=== PATIENT | female | born 2000 | race Caucasian/White ===

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

== ENCOUNTER 2023-08-02 00:13 | Observation (INO) | payer OTHER ==
[2023-08-02] MEDS ORDERED: Sodium Chloride 0.9% 1000 ML 1,000 ML IV STA (00:17)
[2023-08-02] MEDS ORDERED: Sodium Chloride 0.9% 1000 ML 1,000 ML ONE (00:33)
[2023-08-02] MEDS ORDERED: Zofran 4 MG/2 ML VIAL ONE ×2 (00:33→04:23)
[2023-08-02] MEDS ORDERED: TYLENOL 325 MG PO ONE (00:37)
[2023-08-02] MEDS ORDERED: Pepcid 20 MG VIAL IV ONE ×2 (00:37→00:54)
[2023-08-02] MEDS ORDERED: Zofran 4 MG/2 ML VIAL IV ONE (00:37)
[2023-08-02 00:44] LABS: Absolute Neutrophil Ct (ANC) 8.04 x10^3/uL (1.4-6.9); BASOPHIL % 0.3 % (0.0-0.4); Basophil (Absolute #) 0.03 x10^3/uL (0-0.4); Eosinophil % 1.2 % (0.00-5.0); Eosinophil (Absolute #) 0.12 x10^3/uL (0-0.5); Hematocrit 34.1 % (35-47); Hemoglobin 10.8 g/dL (12.0-16.0); IMMATURE GRAN # 0.04 x10^3u/L (0.00-0.03); IMMATURE GRAN % 0.4 % (0.00-0.4); Lymphocyte (Absolute #) 1.28 x10^3/uL (1.0-4.6); Lymphocytes % 12.6 % (24.0-44.0); Mean Cell Volume 95.5 fL (78-100); Mean Corpuscular Hemoglobin 30.3 pg (26-32); Mean Corpuscular Hgb Concent. 31.7 g/dL (32-36); Mean Platelet Volume 9.9 fL (7.5-11.0); Monocyte (Absolute #) 0.64 x10^3/uL (0.0-1.3); Monocytes % 6.3 % (0.0-12.0); Neutrophil % 79.2 % (36.0-66.0); Platelet Count 247 x10^3/uL (150-450); Red Blood Count 3.57 x10^6/uL (4.1-5.4); Red Cell Distribution Width 12.7 % (11.5-14.0); White Blood Count 10.2 x10^3/uL (4.0-10.5)
[2023-08-02] MEDS ORDERED: TYLENOL 325 MG ONE (00:54)
[2023-08-02 00:55] LABS: ALBUMIN 3.7 g/dL (3.5-5.0); ANION GAP 14.9 MEQ/L (5-15); BILIRUBIN,TOTAL 0.2 mg/dL (0.2-1.3); Calcium 8.3 mg/dL (8.4-10.2); Creatinine 1 0.48 mg/dL (0.52-1.04); EST GLOMERULAR FILTRATION RATE 136.4 ML/MIN; Potassium 3.4 mmol/L (3.5-5.1); Total Protein 6.5 g/dL (6.3-8.2)
--- NOTE | 2023-08-02 01:03 | ERPHSYRPT ---
- History of Present Illness Time Seen by Provider: 08/02/23 01:01 Source: patient Exam Limitations: no limitations Patient Subjective Stated Complaint: pt states she was approx 9 weeks and was told on that there was no heart beat. started having small amt of bleeding on thursday and tonight at approx 2200 began bleeding heavily and passing large clots. Triage Nursing Assessment: pt alert and oriented, answers questions approp. pt arrive per ambulance, transfers to stretcher with assist of 3. skin warm and dry. respirations nonlabored. pt ambulates into bathroom with standby assist, steady gait noted. pt passed 500 cc of dark red blood and clots and cont to have active vaginal bleeding. Physician History: pt states she was approx 9 weeks and was told on that there was no heart beat. started having small amt of bleeding on thursday and tonight at approximately 2200 began bleeding heavily and passing large clots. pt passed 500 cc of dark red blood and clots and cont to have active vaginal bleeding. Timing/Duration: today Activites at Onset: none Onset Location: vaginal Associated Symptoms: vaginal discharge Allergies/Adverse Reactions: poison tressa extract Allergy (Verified 08/02/23 00:15) Hives propranolol Allergy (Verified 08/02/23 00:15) Hives Home Medications: No Reportable Medications [No Reported Medications] 08/02/23 [History] Hx Tetanus, Diphtheria Vaccination/Date Given: Yes Hx Influenza Vaccination/Date Given: No Hx Pneumococcal Vaccination/Date Given: No Travel Risk - International Travel Have you traveled outside of the country in past 3 weeks: No - Coronavirus Screening Are you exhibiting any of the following symptoms?: No Close contact with a COVID-19 positive Pt in past 14-21 Days: No - Vaccine Status Have you recieved a Covid-19 vaccination: Yes 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 - Vaccination Dates Dates if Unknown: 2020 - Review of Systems Constitutional: No Symptoms Eyes: No Symptoms Ears, Nose, & Throat: No Symptoms Respiratory: No Symptoms Cardiac: No Symptoms Abdominal/Gastrointestinal: No Symptoms Genitourinary Symptoms: Vaginal Bleeding Musculoskeletal: No Symptoms Skin: No Symptoms Neurological: No Symptoms - Past Medical History Pertinent Past Medical History: Yes Neurological History: Migraines Other Medical History: irreg heart beat, tachycardia - Past Surgical History Past Surgical History: Yes - Social History Smoking Status: Current every day smoker How long have you smoked: 2 Exposure to second hand smoke: Yes Drug Use: none Patient Lives Alone: No - Female History Hx Last Menstrual Period: 05/02/23 Hx Now: Yes (no heart beat ) Gestational Age: 9 weeks - Nursing Vital Signs Nursing Vital Signs: Initial Vital Signs Pulse Rate 106 H 08/02/23 00:25 Respiratory Rate 16 08/02/23 00:25 Blood Pressure 85/56 08/02/23 00:25 O2 Sat by Pulse Oximetry 99 08/02/23 00:25 Pain Scale Pain Intensity 2 - Physical Exam General Appearance: no apparent distress Eye Exam: PERRL/EOMI Ears, Nose, Throat Exam: normal ENT inspection Neck Exam: normal inspection Respiratory Exam: normal breath sounds Cardiovascular Exam: regular rate/rhythm Gastrointestinal/Abdomen Exam: soft Pelvic Exam: not done Rectal Exam: deferred Back Exam: normal inspection Extremity Exam: normal inspection Neurologic Exam: alert, oriented x 3, cooperative Skin Exam: normal color SpO2 Interpretation: normal SpO2: 99 O2 Delivery: Room Air - Course Nursing assessment & vital signs reviewed: Yes Ordered Tests: Active Orders 24 hr Category Date Time Status IV Insertion STAT Care 08/02/23 00:17 Active CBC W DIFF Stat Lab 08/02/23 00:42 Completed CMP Stat Lab 08/02/23 00:42 Completed Medication Summary Generic Name Dose Route Start Last Admin Trade Name Freq PRN Reason Stop Dose Admin Sodium Chloride 1,000 mls @ 999 mls/hr 08/02/23 00:17 08/02/23 00:58 Sodium Chloride 0.9% 1000 Ml IV 08/02/23 01:17 999 mls/hr .Q1H1M STA Administration Discontinued Medications Generic Name Dose Route Start Last Admin Trade Name Freq PRN Reason Stop Dose Admin Acetaminophen 975 mg 08/02/23 00:37 08/02/23 00:56 Acetaminophen 325 Mg Tablet PO 08/02/23 00:38 975 mg STAT ONE Administration Acetaminophen Confirm 08/02/23 00:54 Acetaminophen 325 Mg Tablet Administered 08/02/23 00:55 Dose 975 mg .ROUTE .STK-MED ONE Famotidine 20 mg 08/02/23 00:37 08/02/23 00:57 Famotidine 20 Mg/1 Vial IV 08/02/23 00:38 20 mg STAT ONE Administration Famotidine Confirm 08/02/23 00:54 Famotidine 20 Mg/1 Vial Administered 08/02/23 00:55 Dose 20 mg IV .STK-MED ONE Sodium Chloride Confirm 08/02/23 00:33 Sodium Chloride 0.9% 1000 Ml Administered 08/02/23 00:34 Dose 1,000 mls @ ud .ROUTE .STK-MED ONE Ondansetron HCl Confirm 08/02/23 00:33 Ondansetron Hcl 4 Mg/2 Ml Vial Administered 08/02/23 00:34 Dose 4 mg .ROUTE .STK-MED ONE Ondansetron HCl 4 mg 08/02/23 00:37 08/02/23 00:53 Ondansetron Hcl 4 Mg/2 Ml Vial IV 08/02/23 00:38 4 mg STAT ONE Administration Lab/Rad Data: Laboratory Result Diagrams 08/02/23 00:42 08/02/23 00:42 Laboratory Results 08/02/23 08/02/23 Range/Units 00:42 00:42 WBC 10.2 (4.0-10.5) x10^3/uL RBC 3.57 L (4.1-5.4) x10^6/uL Hgb 10.8 L (12.0-16.0) g/dL Hct 34.1 L (35-47) % MCV 95.5 (78-100) fL MCH 30.3 (26-32) pg MCHC 31.7 L (32-36) g/dL RDW 12.7 (11.5-14.0) % Plt Count 247 (150-450) x10^3/uL MPV 9.9 (7.5-11.0) fL Gran % 79.2 H (36.0-66.0) % Immature Gran % (Auto) 0.4 (0.00-0.4) % Nucleat RBC Rel Count 0.0 (0.00-0.1) % Eos # (Auto) 0.12 (0-0.5) x10^3/uL Immature Gran # (Auto) 0.04 H (0.00-0.03) x10^3u/L Absolute Lymphs (auto) 1.28 (1.0-4.6) x10^3/uL Absolute Monos (auto) 0.64 (0.0-1.3) x10^3/uL Absolute Nucleated RBC 0.00 (0.00-0.01) x10^3u/L Lymphocytes % 12.6 L (24.0-44.0) % Monocytes % 6.3 (0.0-12.0) % Eosinophils % 1.2 (0.00-5.0) % Basophils % 0.3 (0.0-0.4) % Absolute Granulocytes 8.04 H (1.4-6.9) x10^3/uL Basophils # 0.03 (0-0.4) x10^3/uL Sodium 137 (137-145) mmol/L Potassium 3.4 L (3.5-5.1) mmol/L Chloride 105 (98-107) mmol/L Carbon Dioxide 20 L (22-30) mmol/L Anion Gap 14.9 (5-15) MEQ/L BUN 11 (7-17) mg/dL Creatinine 0.48 L (0.52-1.04) mg/dL Estimated GFR 136.4 ML/MIN Glucose 116 H (74-106) mg/dL Calcium 8.3 L (8.4-10.2) mg/dL Total Bilirubin 0.20 (0.2-1.3) mg/dL AST 21 (14-36) U/L ALT 21 (0-35) U/L Alkaline Phosphatase 64 (38-126) U/L Serum Total Protein 6.5 (6.3-8.2) g/dL Albumin 3.7 (3.5-5.0) g/dL - Progress Progress: unchanged Air Movement: good Blood Culture(s) Obtained: No Antibiotics given: No Discussed with : Jose Angel Will see patient in: hospital (observation) Counseled pt/family regarding: lab results, diagnosis, need for follow-up Medical Desision Making - Discussion of managment Care discussed with:: on-call "doc" Reviewed:: Test results, Need for additional workup Agreed on:: Treatment plan, decision to admit, place in obs Will see patient: in hospital - Diagnostic Testing Diagnostic test were ordered, analyzed, and reviewed by me: Yes Radiological Interpretation: Reviewed by me - Risk of complications The pt has a mod risk of morbidity or mortality based on: Need for minor s urgical intervention in patient with know risk factors - Departure Departure Disposition: Observation Clinical Impression: Vaginal bleeding Condition: Fair Critical Care Time: No Referrals: JESI CARMONA MD [Primary Care Provider] - Follow up/PCP as directed Instructions: Miscarriage (DC)
[2023-08-02] MEDS ORDERED: Sodium Chloride 0.9% 1000 ML 1,000 ML IV SCH ×2 (02:10)
[2023-08-02] MEDS ORDERED: TYLENOL EXTRA STRENGTH 500 MG PO PRN (02:17)
[2023-08-02] MEDS ORDERED: Lactated Ringers 1,000 ML IV SCH (02:30)
[2023-08-02 03:00] LABS: ABO TYPING O; Antibody Screen NEGATIVE (NEGATIVE); RH TYPING POSITIVE
[2023-08-02] MEDS ORDERED: SUBLIMAZE 100 MCG/2 ML ONE (04:00)
[2023-08-02] MEDS ORDERED: Versed 2 MG/2 ML Injection ONE (04:00)
[2023-08-02] MEDS ORDERED: DIPRIVAN 200 MG/20 ML IV ONE (04:00)
--- NOTE | 2023-08-02 04:02 | PCM.HP ---
History of Present Illness - Chief Complaint Chief Complaint: vaginal hemorrhage History of Present Illness: is a 23 year old female. 23 yo at 8 5/7 wks gestation with diagnosed demise admitted for heavy vaginal bleeding that started thursday evening with cramping. states passing out while at home. Medications & Allergies Home Medications: Home Medication List No Reportable Medications [No Reported Medications] 08/02/23 [History Confirmed 08/02/23] Allergies/Adverse Reactions: Allergies Allergy/AdvReac Type Severity Reaction Status Date / Time poison tressa extract Allergy Hives Verified 08/02/23 00:15 propranolol Allergy Hives Verified 08/02/23 00:15 - Past Medical History Past Medical History: Yes Neurological History: Migraines ENT History: No Pertinent History Cardiac History: No Pertinent History Respiratory History: No Pertinent History Endocrine Medical History: No Pertinent History Musculoskelatal History: No Pertinent History GI Medical History: No Pertinent History History: No Pertinent History, Other (vaginal bleeding) Pyscho-Social History: No Pertinent History Reproductive Disorders: No Pertinent History Comment: irreg heart beat, tachycardia - Female History Hx Last Menstrual Period: 05/02/23 Are you now?: No (no heart beat ) Gestational Age: 9 weeks - Past Surgical History Past Surgical History: Yes Cardiac History: No Pertinent History Respiratory Surgery: No Pertinent History GI Surgical History: No Pertinent History Genitourinary Surgical Hx: No Pertinent History Musculskeletal Surgical Hx: No Pertinent History Female Surgical History: No Pertinent History - Social History Smoking Status: Current every day smoker How long have you smoked: 2 Exposure to second hand smoke: Yes Alcohol: None Drug Use: none - Physical Exam Vital Signs: Vital Signs - 24 hr Temp Pulse Resp BP BP Pulse Ox 08/02/23 03:08 97.6 F 114 H 19 104/63 96 08/02/23 02:14 97.6 F 113 H 19 111/54 96 08/02/23 01:30 92 H 100/67 99 08/02/23 01:12 99 08/02/23 01:00 101 H 16 108/65 98 08/02/23 00:45 92 H 16 117/58 98 08/02/23 00:25 106 H 16 85/56 99 Respiratory Exam: normal breath sounds Cardiovascular Exam: regular rate/rhythm Gastrointestinal/Abdomen Exam: soft Pelvic Exam: not done Results - Labs Lab/Micro Results: Lab Results-Last 24 Hours 08/02/23 08/02/23 08/02/23 Range/Units 00:42 00:42 01:23 WBC 10.2 (4.0-10.5) x10^3/uL RBC 3.57 L (4.1-5.4) x10^6/uL Hgb 10.8 L (12.0-16.0) g/dL Hct 34.1 L (35-47) % MCV 95.5 (78-100) fL MCH 30.3 (26-32) pg MCHC 31.7 L (32-36) g/dL RDW 12.7 (11.5-14.0) % Plt Count 247 (150-450) x10^3/uL MPV 9.9 (7.5-11.0) fL Gran % 79.2 H (36.0-66.0) % Immature Gran % (Auto) 0.4 (0.00-0.4) % Nucleat RBC Rel Count 0.0 (0.00-0.1) % Eos # (Auto) 0.12 (0-0.5) x10^3/uL Immature Gran # (Auto) 0.04 H (0.00-0.03) x10^3u/L Absolute Lymphs (auto) 1.28 (1.0-4.6) x10^3/uL Absolute Monos (auto) 0.64 (0.0-1.3) x10^3/uL Absolute Nucleated RBC 0.00 (0.00-0.01) x10^3u/L Lymphocytes % 12.6 L (24.0-44.0) % Monocytes % 6.3 (0.0-12.0) % Eosinophils % 1.2 (0.00-5.0) % Basophils % 0.3 (0.0-0.4) % Absolute Granulocytes 8.04 H (1.4-6.9) x10^3/uL Basophils # 0.03 (0-0.4) x10^3/uL Sodium 137 (137-145) mmol/L Potassium 3.4 L (3.5-5.1) mmol/L Chloride 105 (98-107) mmol/L Carbon Dioxide 20 L (22-30) mmol/L Anion Gap 14.9 (5-15) MEQ/L BUN 11 (7-17) mg/dL Creatinine 0.48 L (0.52-1.04) mg/dL Estimated GFR 136.4 ML/MIN Glucose 116 H (74-106) mg/dL Calcium 8.3 L (8.4-10.2) mg/dL Total Bilirubin 0.20 (0.2-1.3) mg/dL AST 21 (14-36) U/L ALT 21 (0-35) U/L Alkaline Phosphatase 64 (38-126) U/L Serum Total Protein 6.5 (6.3-8.2) g/dL Albumin 3.7 (3.5-5.0) g/dL ABO Group O Rh Factor POSITIVE Antibody Screen NEGATIVE (NEGATIVE) Assessment/Plan (1) Missed Current Visit: Yes Status: Acute Code(s): O02.1 - MISSED
[2023-08-02] MEDS ORDERED: KEFZOL 1 GM ONE (04:06)
[2023-08-02] MEDS ORDERED: TORAdol 30 mg Injection ONE (04:23)
[2023-08-02] MEDS ORDERED: PHENYLEPHRINE HCL ONE (04:44)
[2023-08-02] MEDS ORDERED: DEMEROL 50 MG ONE (05:11)
[2023-08-02 06:16] LABS: Absolute Neutrophil Ct (ANC) 7.95 x10^3/uL (1.4-6.9); BASOPHIL % 0.2 % (0.0-0.4); Basophil (Absolute #) 0.02 x10^3/uL (0-0.4); Eosinophil % 0.4 % (0.00-5.0); Eosinophil (Absolute #) 0.04 x10^3/uL (0-0.5); Hematocrit 25.5 % (35-47); IMMATURE GRAN # 0.03 x10^3u/L (0.00-0.03); IMMATURE GRAN % 0.3 % (0.00-0.4); Lymphocyte (Absolute #) 1.49 x10^3/uL (1.0-4.6); Lymphocytes % 14.8 % (24.0-44.0); Mean Cell Volume 94.1 fL (78-100); Mean Corpuscular Hemoglobin 29.5 pg (26-32); Mean Corpuscular Hgb Concent. 31.4 g/dL (32-36); Mean Platelet Volume 10.2 fL (7.5-11.0); Monocyte (Absolute #) 0.56 x10^3/uL (0.0-1.3); Monocytes % 5.6 % (0.0-12.0); Neutrophil % 78.7 % (36.0-66.0); Platelet Count 220 x10^3/uL (150-450); Red Blood Count 2.71 x10^6/uL (4.1-5.4); Red Cell Distribution Width 12.9 % (11.5-14.0); White Blood Count 10.1 x10^3/uL (4.0-10.5)
[2023-08-02 12:15] VITALS: BP 99/52; PULSE 94; RESP 18; TEMP 98.2; O2SAT 97
--- NOTE | 2023-08-03 13:00 | OP ---
SURGERY DATE/TIME: 08/02/2023 0405 PREOPERATIVE DIAGNOSIS: Previous missed now incomplete . POSTOPERATIVE DIAGNOSIS: Previous missed now incomplete . PROCEDURE: Suction D&C. SURGEON: Bal Garduno D.O. SENIOR TABLEAU DEVELOPER: Marlin Jennings, surgical assist. ANESTHESIA: General. ESTIMATED BLOOD LOSS: 50 cc. COMPLICATIONS: None. INDICATIONS: The risks, benefits, indications and alternatives of the procedure were reviewed with the patient prior to procedure. The patient understood the risk of infection, bleeding, bowel injury, bladder injury, uterine perforation, pelvic infection and thromboembolic disorder associated with the surgery and desires to have this surgery as a possible means to alleviate her current medical condition. DESCRIPTION OF PROCEDURE AND FINDINGS: At this time the patient is taken to the operating room, given general sedation, placed in the dorsal lithotomy position, prepped and draped in the usual sterile fashion. A weighted speculum is then placed in the patient's vagina and the anterior lip of the cervix is grasped with a single tooth tenaculum where a #8 curved suction Vacurette was then placed into the fundus of the uterus retrieving a significant amount of products of conception including placental tissue. After complete suctioning, the instrument was removed and the curette was then placed into the fundus of the uterus and curettage was performed in all quadrants of the uterus retrieving the remaining amount of products of conception. From this point there was no more bleeding that was noted. All instruments were then removed from the patient's vaginal region. The patient was then taken out of the dorsal lithotomy position, was taken out of anesthesia and was then taken to the recovery room in stable condition. All instruments and laps were accounted for x2.
== END 2023-08-02 12:48 | disposition home or self-care (01) ==
LOC: ED 00:13 → MED SURG 02:06
PROVIDERS: ADMIT Obstetrics & Gynecology; ATTEND Obstetrics & Gynecology
DX: O02.1 Missed abortion (principal); F17.200 Nicotine dependence, unspecified, uncomplicated; Z20.828 Contact with and (suspected) exposure to other viral communicable diseases
CPT/HCPCS: 36000; 36415; 59820; 80053; 85025; 86850; 86900; 86901; 96374; 96375; 99284; G0378; J0690; J1885; J2175; J2250; J2371; J2405; J2704; J3010; A9270-GY

== ENCOUNTER 2023-08-06 15:32 | Observation (INO) | payer OTHER ==
[2023-08-06] MEDS ORDERED: Sodium Chloride 0.9% 1000 ML 1,000 ML IV STA (16:09)
[2023-08-06] MEDS ORDERED: TYLENOL 325 MG PO STA (16:10)
[2023-08-06] MEDS ORDERED: Zofran 4 MG/2 ML VIAL IV ONE (16:11)
[2023-08-06 16:28] LABS: Appearance Clear (Clear); Bacteria None Seen /HPF (None Seen); Bilirubin Negative (Negative); Blood Small (Negative); Epithelial Cells None Seen /HPF (None Seen); Glucose, Urine Negative (Negative); Hyaline Casts NONE SEEN /LPF (0-2); Ketones Negative (Negative); Leukocyte Esterase Negative (Negative); Nitrite Negative (Negative); Protein,Urine Dip Negative (Negative); Specific Gravity 1.015 (1.005-1.030); Urobilinogen 0.2 mg/dL (0.2); WBC 0-2 /HPF (0-5)
[2023-08-06 16:30] LABS: ADD URINE CULTURE? NO (NO)
--- NOTE | 2023-08-06 16:32 | XRAY ---
Indication: Fever. Cough. Comparison: None Portable chest demonstrates normal heart, lungs, and bony thorax.
[2023-08-06] MEDS ORDERED: Zofran 4 MG/2 ML VIAL ONE (16:38)
[2023-08-06] MEDS ORDERED: Sodium Chloride 0.9% 1000 ML 1,000 ML ONE ×2 (16:38→20:34)
[2023-08-06] MEDS ORDERED: TYLENOL 325 MG ONE (16:38)
[2023-08-06 16:50] LABS: Absolute Neutrophil Ct (ANC) 5.77 x10^3/uL (1.4-6.9); BASOPHIL % 0.3 % (0.0-0.4); Basophil (Absolute #) 0.02 x10^3/uL (0-0.4); Eosinophil % 0.8 % (0.00-5.0); Eosinophil (Absolute #) 0.06 x10^3/uL (0-0.5); Hematocrit 22.7 % (35-47); Hemoglobin 7.1 g/dL (12.0-16.0); IMMATURE GRAN # 0.03 x10^3u/L (0.00-0.03); IMMATURE GRAN % 0.4 % (0.00-0.4); Lymphocytes % 18.1 % (24.0-44.0); Mean Corpuscular Hemoglobin 29.7 pg (26-32); Mean Corpuscular Hgb Concent. 31.3 g/dL (32-36); Mean Platelet Volume 10.1 fL (7.5-11.0); Monocyte (Absolute #) 0.44 x10^3/uL (0.0-1.3); Monocytes % 5.7 % (0.0-12.0); Neutrophil % 74.7 % (36.0-66.0); Platelet Count 243 x10^3/uL (150-450); Red Blood Count 2.39 x10^6/uL (4.1-5.4); Red Cell Distribution Width 13.3 % (11.5-14.0); White Blood Count 7.7 x10^3/uL (4.0-10.5)
[2023-08-06 17:03] LABS: ALBUMIN 4.1 g/dL (3.5-5.0); ANION GAP 13.3 MEQ/L (5-15); BILIRUBIN,TOTAL 0.1 mg/dL (0.2-1.3); Calcium 8.9 mg/dL (8.4-10.2); Creatinine 1 0.45 mg/dL (0.52-1.04); EST GLOMERULAR FILTRATION RATE 138.6 ML/MIN; Potassium 3.9 mmol/L (3.5-5.1); Total Protein 7.1 g/dL (6.3-8.2)
--- NOTE | 2023-08-06 17:11 | ERPHSYRPT ---
- History of Present Illness Time Seen by Provider: 08/06/23 15:34 Source: patient Exam Limitations: no limitations Patient Subjective Stated Complaint: C/O fever, headache, lower abdominal/pelvic pain. Intermittent since 08/01/23. Patient with recent D&C with Dr. Garduno. Triage Nursing Assessment: Patient ambulated back to ER. She is alert and or iented. Patient is flushed. NO SOB. Non-productive cough present. CARRANZA WNL. Lower abdomen tenderness. Physician History: 23 years old female presented in the ER with chief complaint of flulike symptoms for the last 5 days. Patient recently had D&C done and denies any increased vaginal bleeding or any foul discharge. She does have some lower abdominal discomfort which is there since D&C. Denies any nausea or vomiting. Denies any urinary complaints. Does report having dry to minimal productive cough, congestion and mild headache. Earlier she felt as if she was having a temperature and she had a temperature of 100.0 on presentation in the ER. No difficulty breathing. Denies any known sick contact. She was also diagnosed with COVID last month. Allergies/Adverse Reactions: poison tressa extract Allergy (Verified 08/06/23 15:54) Hives propranolol Allergy (Verified 08/06/23 15:54) Hives Home Medications: Ferrous Sulfate 325 mg [Feosol 325 mg] 1 tab PO TID 08/06/23 [History] Tranexamic Acid 2 tab PO TID 08/06/23 [History] Hx Tetanus, Diphtheria Vaccination/Date Given: Yes Hx Influenza Vaccination/Date Given: No (unknown) Hx Pneumococcal Vaccination/Date Given: No Immunizations Up to Date: Yes Travel Risk - International Travel Have you traveled outside of the country in past 3 weeks: No - Coronavirus Screening Are you exhibiting any of the following symptoms?: Yes Symptoms: Fever, Cough: New Onset, Headaches/Body Aches/Fatigue Close contact with a COVID-19 positive Pt in past 14-21 Days: No - Vaccine Status Have you recieved a Covid-19 vaccination: Yes 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 - Vaccination Dates Dates if Unknown: 2020 - Review of Systems Constitutional: Fever, Fatigue Eyes: No Symptoms Ears, Nose, & Throat: Nose Congestion, Throat Swelling Respiratory: Cough Cardiac: No Symptoms Abdominal/Gastrointestinal: Abdominal Pain Genitourinary Symptoms: No Symptoms Musculoskeletal: Myalgias Skin: No Symptoms Neurological: No Symptoms Endocrine: No Symptoms Hematologic/Lymphatic: No Symptoms Immunological/Allergic: No Symptoms - Past Medical History Pertinent Past Medical History: Yes Neurological History: Migraines ENT History: No Pertinent History Cardiac History: No Pertinent History Respiratory History: No Pertinent History Endocrine Medical History: No Pertinent History Musculoskeletal History: No Pertinent History GI Medical History: No Pertinent History History: No Pertinent History, Other Psycho-Social History: No Pertinent History Female Reproductive Disorders: No Pertinent History Other Medical History: irreg heart beat, tachycardia, 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) - Past Surgical History Past Surgical History: Yes Cardiac: No Pertinent History Respiratory: No Pertinent History Gastrointestinal: No Pertinent History Genitourinary: No Pertinent History Musculoskeletal: No Pertinent History Female Surgical History: Dilation & Curettage - Social History Smoking Status: Former smoker How long have you smoked: 2 Exposure to second hand smoke: Yes Drug Use: none Patient Lives Alone: No - Female History Hx Last Menstrual Period: May 03, 2023 Hx Now: No - Nursing Vital Signs Nursing Vital Signs: Initial Vital Signs Temperature 100 F 08/06/23 15:56 Pulse Rate 124 H 08/06/23 15:56 Respiratory Rate 18 08/06/23 15:56 Blood Pressure 129/77 08/06/23 15:56 O2 Sat by Pulse Oximetry 99 08/06/23 15:56 Pain Scale Pain Intensity 8 - Physical Exam General Appearance: no apparent distress, alert Eye Exam: PERRL/EOMI Ears, Nose, Throat Exam: TMs normal, pharyngeal erythema Neck Exam: normal inspection, non-tender, supple, full range of motion Respiratory Exam: normal breath sounds, lungs clear Cardiovascular Exam: normal heart sounds, tachycardia Gastrointestinal/Abdomen Exam: soft, normal bowel sounds, tenderness (Mild lower abdominal/suprapubic tenderness with no guarding or rebound tenderness. NABS) Back Exam: normal inspection, normal range of motion Extremity Exam: normal inspection, pelvis stable Neurologic Exam: alert, oriented x 3, cooperative Skin Exam: normal color, warm SpO2 Interpretation: normal SpO2: 97 O2 Delivery: Room Air Ordered Tests: Active Orders 24 hr Category Date Time Status Bedrest ROUTINE Activity 08/06/23 20:12 Active Up With Assistance ROUTINE Activity 08/06/23 20:12 Active Call Admit Doctor for Orders ON ADMISSION Care 08/06/23 20:12 Active Ship'S Captain ROUTINE Care 08/06/23 20:12 Active Code Status Order ROUTINE Care 08/06/23 20:12 Active Fall Protocol Q1H Care 08/06/23 20:[address] in Observation ROUTINE Care 08/06/23 20:12 Active House Regular Diet Diet 08/07/23 Breakfast Active CHEST 1 VIEW (PORTABLE) Stat Exams 08/06/23 16:09 Completed BLOOD CULTURE Stat Lab 08/06/23 16:35 Received CBC W DIFF Stat Lab 08/06/23 16:30 Completed CMP Stat Lab 08/06/23 16:30 Completed Lactic Acid Stat Lab 08/06/23 16:10 Completed PROCALCITONIN Stat Lab 08/06/23 16:30 Completed UA W/RFX UR CULTURE Stat Lab 08/06/23 16:18 Completed Pulse Oximetry CONTINUOUS RT 08/06/23 20:12 Active Transfer Order Routine Transfer 08/06/23 Completed Medication Summary Discontinued Medications Generic Name Dose Route Start Last Admin Trade Name Jannet PRN Reason Stop Dose Admin Acetaminophen 975 mg 08/06/23 16:10 08/06/23 16:41 Acetaminophen 325 Mg Tablet PO 08/06/23 16:11 975 mg STAT STA Administration Acetaminophen Confirm 08/06/23 16:38 Acetaminophen 325 Mg Tablet Administered 08/06/23 16:39 Dose 975 mg .ROUTE .STK-MED ONE Sodium Chloride 1,000 mls @ 999 mls/hr 08/06/23 16:09 08/06/23 17:46 Sodium Chloride 0.9% 1000 Ml IV 08/06/23 17:09 Infused .Q1H1M STA Infusion Sodium Chloride Confirm 08/06/23 16:38 Sodium Chloride 0.9% 1000 Ml Administered 08/06/23 16:39 Dose 1,000 mls @ ud .ROUTE .STK-MED ONE Sodium Chloride Confirm 08/06/23 20:34 Sodium Chloride 0.9% 1000 Ml Administered 08/06/23 20:35 Dose 1,000 mls @ ud .ROUTE .STK-MED ONE Ondansetron HCl 4 mg 08/06/23 16:11 08/06/23 16:44 Ondansetron Hcl 4 Mg/2 Ml Vial IV 08/06/23 16:12 4 mg STAT ONE Administration Ondansetron HCl Confirm 08/06/23 16:38 Ondansetron Hcl 4 Mg/2 Ml Vial Administered 08/06/23 16:39 Dose 4 mg .ROUTE .K-MED ONE Lab/Rad Data: Laboratory Result Diagrams 08/06/23 16:30 08/06/23 16:30 Laboratory Results 08/06/23 08/06/23 08/06/23 Range/Units 18:36 18:36 18:36 WBC (4.0-10.5) x10^3/uL RBC (4.1-5.4) x10^6/uL Hgb (12.0-16.0) g/dL Hct (35-47) % MCV (78-100) fL MCH (26-32) pg MCHC (32-36) g/dL RDW (11.5-14.0) % Plt Count (150-450) x10^3/uL MPV (7.5-11.0) fL Gran % (36.0-66.0) % Immature Gran % (Auto) (0.00-0.4) % Nucleat RBC Rel Count (0.00-0.1) % Eos # (Auto) (0-0.5) x10^3/uL Immature Gran # (Auto) (0.00-0.03) x10^3u/L Absolute Lymphs (auto) (1.0-4.6) x10^3/uL Absolute Monos (auto) (0.0-1.3) x10^3/uL Absolute Nucleated RBC (0.00-0.01) x10^3u/L Lymphocytes % (24.0-44.0) % Monocytes % (0.0-12.0) % Eosinophils % (0.00-5.0) % Basophils % (0.0-0.4) % Absolute Granulocytes (1.4-6.9) x10^3/uL Basophils # (0-0.4) x10^3/uL Sodium (137-145) mmol/L Potassium (3.5-5.1) mmol/L Chloride (98-107) mmol/L Carbon Dioxide (22-30) mmol/L Anion Gap (5-15) MEQ/L BUN (7-17) mg/dL Creatinine (0.52-1.04) mg/dL Estimated GFR ML/MIN Glucose (74-106) mg/dL Lactic Acid (0.4-2.0) Calcium (8.4-10.2) mg/dL Total Bilirubin (0.2-1.3) mg/dL AST (14-36) U/L ALT (0-35) U/L Alkaline Phosphatase (38-126) U/L Serum Total Protein (6.3-8.2) g/dL Albumin (3.5-5.0) g/dL Procalcitonin (0.030-0.080) ng/mL Urine Color (Yellow) Urine Appearance (Clear) Urine pH (4.6-8.0) Ur Specific [place] (1.005-1.030) Urine Protein (Negative) Urine Glucose (UA) (Negative) mg/dL Urine Ketones (Negative) Urine Blood (Negative) Urine Nitrite (Negative) Urine Bilirubin (Negative) Urine Urobilinogen (0.2) mg/dL Ur Leukocyte Esterase (Negative) U Hyaline Cast (Auto) (0-2) /LPF Urine Microscopic RBC (0-5) /HPF Urine Microscopic WBC (0-5) /HPF Ur Epithelial Cells (None Seen) /HPF Urine Bacteria (None Seen) /HPF Urine Culture Reflexed (NO) Influenza Type A Ag (NEGATIVE) Influenza Type B Ag (NEGATIVE) RSV (PCR) (NEGATIVE) SARS-CoV-2 (PCR) (NEGATIVE) ABO Group O Rh Factor POSITIVE Antibody Screen NEGATIVE (NEGATIVE) Crossmatch COMPATIBLE COMPATIBLE (COMPATIBLE) 08/06/23 08/06/23 08/06/23 Range/Units 16:30 16:30 16:30 WBC 7.7 (4.0-10.5) x10^3/uL RBC 2.39 L (4.1-5.4) x10^6/uL Hgb 7.1 L (12.0-16.0) g/dL Hct 22.7 L (35-47) % MCV 95.0 (78-100) fL MCH 29.7 (26-32) pg MCHC 31.3 L (32-36) g/dL RDW 13.3 (11.5-14.0) % Plt Count 243 (150-450) x10^3/uL MPV 10.1 (7.5-11.0) fL Gran % 74.7 H (36.0-66.0) % Immature Gran % (Auto) 0.4 (0.00-0.4) % Nucleat RBC Rel Count 0.0 (0.00-0.1) % Eos # (Auto) 0.06 (0-0.5) x10^3/uL Immature Gran # (Auto) 0.03 (0.00-0.03) x10^3u/L Absolute Lymphs (auto) 1.40 (1.0-4.6) x10^3/uL Absolute Monos (auto) 0.44 (0.0-1.3) x10^3/uL Absolute Nucleated RBC 0.00 (0.00-0.01) x10^3u/L Lymphocytes % 18.1 L (24.0-44.0) % Monocytes % 5.7 (0.0-12.0) % Eosinophils % 0.8 (0.00-5.0) % Basophils % 0.3 (0.0-0.4) % Absolute Granulocytes 5.77 (1.4-6.9) x10^3/uL Basophils # 0.02 (0-0.4) x10^3/uL Sodium 137 (137-145) mmol/L Potassium 3.9 (3.5-5.1) mmol/L Chloride 103 (98-107) mmol/L Carbon Dioxide 25 (22-30) mmol/L Anion Gap 13.3 (5-15) MEQ/L BUN 8 (7-17) mg/dL Creatinine 0.45 L (0.52-1.04) mg/dL Estimated GFR 138.6 ML/MIN Glucose 95 (74-106) mg/dL Lactic Acid (0.4-2.0) Calcium 8.9 (8.4-10.2) mg/dL Total Bilirubin 0.10 L (0.2-1.3) mg/dL AST 33 (14-36) U/L ALT 33 (0-35) U/L Alkaline Phosphatase 74 (38-126) U/L Serum Total Protein 7.1 (6.3-8.2) g/dL Albumin 4.1 (3.5-5.0) g/dL Procalcitonin < 0.030 L (0.030-0.080) ng/mL Urine Color (Yellow) Urine Appearance (Clear) Urine pH (4.6-8.0) Ur Specific [place] (1.005-1.030) Urine Protein (Negative) Urine Glucose (UA) (Negative) mg/dL Urine Ketones (Negative) Urine Blood (Negative) Urine Nitrite (Negative) Urine Bilirubin (Negative) Urine Urobilinogen (0.2) mg/dL Ur Leukocyte Esterase (Negative) U Hyaline Cast (Auto) (0-2) /LPF Urine Microscopic RBC (0-5) /HPF Urine Microscopic WBC (0-5) /HPF Ur Epithelial Cells (None Seen) /HPF Urine Bacteria (None Seen) /HPF Urine Culture Reflexed (NO) Influenza Type A Ag (NEGATIVE) Influenza Type B Ag (NEGATIVE) RSV (PCR) (NEGATIVE) SARS-CoV-2 (PCR) (NEGATIVE) ABO Group Rh Factor Antibody Screen (NEGATIVE) Crossmatch (COMPATIBLE) 08/06/23 08/06/23 08/06/23 Range/Units 16:25 16:18 16:10 WBC (4.0-10.5) x10^3/uL RBC (4.1-5.4) x10^6/uL Hgb (12.0-16.0) g/dL Hct (35-47) % MCV (78-100) fL MCH (26-32) pg MCHC (32-36) g/dL RDW (11.5-14.0) % Plt Count (150-450) x10^3/uL MPV (7.5-11.0) fL Gran % (36.0-66.0) % Immature Gran % (Auto) (0.00-0.4) % Nucleat RBC Rel Count (0.00-0.1) % Eos # (Auto) (0-0.5) x10^3/uL Immature Gran # (Auto) (0.00-0.03) x10^3u/L Absolute Lymphs (auto) (1.0-4.6) x10^3/uL Absolute Monos (auto) (0.0-1.3) x10^3/uL Absolute Nucleated RBC (0.00-0.01) x10^3u/L Lymphocytes % (24.0-44.0) % Monocytes % (0.0-12.0) % Eosinophils % (0.00-5.0) % Basophils % (0.0-0.4) % Absolute Granulocytes (1.4-6.9) x10^3/uL Basophils # (0-0.4) x10^3/uL Sodium (137-145) mmol/L Potassium (3.5-5.1) mmol/L Chloride (98-107) mmol/L Carbon Dioxide (22-30) mmol/L Anion Gap (5-15) MEQ/L BUN (7-17) mg/dL Creatinine (0.52-1.04) mg/dL Estimated GFR ML/MIN Glucose (74-106) mg/dL Lactic Acid 0.7 (0.4-2.0) Calcium (8.4-10.2) mg/dL Total Bilirubin (0.2-1.3) mg/dL AST (14-36) U/L ALT (0-35) U/L Alkaline Phosphatase (38-126) U/L Serum Total Protein (6.3-8.2) g/dL Albumin (3.5-5.0) g/dL Procalcitonin (0.030-0.080) ng/mL Urine Color Yellow (Yellow) Urine Appearance Clear (Clear) Urine pH 7.0 (4.6-8.0) Ur Specific [place] 1.015 (1.005-1.030) Urine Protein Negative (Negative) Urine Glucose (UA) Negative (Negative) mg/dL Urine Ketones Negative (Negative) Urine Blood Small A (Negative) Urine Nitrite Negative (Negative) Urine Bilirubin Negative (Negative) Urine Urobilinogen 0.2 (0.2) mg/dL Ur Leukocyte Esterase Negative (Negative) U Hyaline Cast (Auto) NONE SEEN (0-2) /LPF Urine Microscopic RBC 6-10 A (0-5) /HPF Urine Microscopic WBC 0-2 (0-5) /HPF Ur Epithelial Cells None Seen (None Seen) /HPF Urine Bacteria None Seen (None Seen) /HPF Urine Culture Reflexed NO (NO) Influenza Type A Ag NEGATIVE (NEGATIVE) Influenza Type B Ag NEGATIVE (NEGATIVE) RSV (PCR) NEGATIVE (NEGATIVE) SARS-CoV-2 (PCR) NEGATIVE (NEGATIVE) ABO Group Rh Factor Antibody Screen (NEGATIVE) Crossmatch (COMPATIBLE) - Progress Progress: re-examined Air Movement: good Progress Note: 08/06/23 18:02 23 years old female presented in the ER with chief complaint of flulike symptoms for the last 5 days. Patient recently had D&C done and denies any increased vaginal bleeding or any foul discharge. She does have some lower abdominal discomfort which is there since D&C. Denies any nausea or vomiting. Denies any urinary complaints. Does report having dry to minimal productive cough, congestion and mild headache. Earlier she felt as if she was having a temperature and she had a temperature of 100.0 on presentation in the ER. No difficulty breathing. Denies any known sick contact. She was also diagnosed with COVID last month. She is given fluid bolus, chest x-ray negative for any acute cardiopulmonary findings. Patient has chronic tachycardia. Heart rate improved after fluids to 103. Normal white count, hemoglobin dropped from 8-7.1. Patient recently has been bleeding heavily and was given some medication by [employer] TECHNICAL ASSISTANT and bleeding is much improved. She is on iron pills. She is advised to continue with that. I have obtained chest x-ray which is negative for any acute cardiopulmonary findings. Chemistries fairly unremarkable. Normal lactate. Normal procalcitonin. I believe patient has viral etiology URI. Recommended sup portive care for it. Patient hemoglobin is low and was tachycardic, discussed with patient about transfusion. Went over risk and benefits of transfusion and she wants to go ahead with transfusion this time. 08/06/23 18:[address] Garduno, reviewed history, workup, agreed with 2 units tra nsfusions. Patient is being admitted for observation. 08/06/23 18:27 Blood Culture(s) Obtained: Yes Antibiotics given: No Discussed with DrKarmen: Jose Angel Will see patient in: hospital (observation) (182) Counseled pt/family regarding: lab results, diagnosis, need for follow-up, rad results Medical Desision Making - Independent Historian Additional History obtained from: Spouse - Discussion of managment Care discussed with:: specialist (Shaan) Reviewed:: Test results Agreed on:: Treatment plan Will see patient: in hospital - Diagnostic Testing Diagnostic test were ordered, analyzed, and reviewed by me: Yes Radiological Interpretation: Reviewed by me - Risk of complications The pt has a high risk of morbidity or mortality based on: Decision regarding hospitilization or escalation of hosp level of care - Departure Departure Disposition: Observation Clinical Impression: URI with cough and congestion, Acute blood loss anemia (ABLA) Condition: Stable Critical Care Time: No
[2023-08-06 17:22] LABS: INFLUENZA A NEGATIVE (NEGATIVE); INFLUENZA B NEGATIVE (NEGATIVE); RESPIRATORY SYNCTIAL VIRUS NEGATIVE (NEGATIVE); SARS-CoV-2 Xpert Express NEGATIVE (NEGATIVE)
[2023-08-06 20:00] LABS: CROSS MATCH (PRBC) COMPATIBLE (COMPATIBLE)
[2023-08-06 21:23] LABS: ABO TYPING O; RH TYPING POSITIVE
[2023-08-06 21:24] LABS: Antibody Screen NEGATIVE (NEGATIVE)
[2023-08-07] MEDS: Sodium Chloride 0.9% 1000 ML 1,000 ML IV SCH ×3 (01:55→07:46)
[2023-08-07 05:00] LABS: Hematocrit 26.4 % (35-47); Hemoglobin 8.3 g/dL (12.0-16.0); Mean Cell Volume 94.6 fL (78-100); Mean Corpuscular Hemoglobin 29.7 pg (26-32); Mean Corpuscular Hgb Concent. 31.4 g/dL (32-36); Platelet Count 225 x10^3/uL (150-450); Red Blood Count 2.79 x10^6/uL (4.1-5.4); Red Cell Distribution Width 13.9 % (11.5-14.0); White Blood Count 6.3 x10^3/uL (4.0-10.5)
[2023-08-07 05:01] VITALS: O2SAT 98
[2023-08-07 05:31] LABS: ALBUMIN 3.4 g/dL (3.5-5.0); ANION GAP 9.3 MEQ/L (5-15); BILIRUBIN,TOTAL 0.6 mg/dL (0.2-1.3); Calcium 8.2 mg/dL (8.4-10.2); Creatinine 1 0.51 mg/dL (0.52-1.04); EST GLOMERULAR FILTRATION RATE 134.4 ML/MIN; Potassium 3.6 mmol/L (3.5-5.1)
[2023-08-07 06:57] VITALS: BP 86/52; PULSE 68; RESP 15; TEMP 97.2
--- NOTE | 2023-08-07 07:47 | PCM.HP ---
History of Present Illness - Chief Complaint Chief Complaint: Acute blood loss anemia History of Present Illness: is a 23 year old female. 23 yo sp suction d&c on august 02 for missed and was done so without complication presented to ER for coughing that began yesterday with fever at home. pt was seen and cxray was normal however was noted to having tachycardia and states having had a hx of continued tachycardia and hgb was at 7. pt had co vaginal bleeding she had on pod 1 and was placed on tranexamic acid 650 two tabs tid till alleviation of her vaginal bleeding for which she states only has had minimal bleeding for the past few days. Medications & Allergies Home Medications: Home Medication List Ferrous Sulfate 325 mg [Feosol 325 mg] 1 tab PO TID 08/06/23 [History Confirmed 08/06/23] Tranexamic Acid 2 tab PO TID 08/06/23 [History Confirmed 08/06/23] Allergies/Adverse Reactions: Allergies Allergy/AdvReac Type Severity Reaction Status Date / Time poison tressa extract Allergy Hives Verified 08/06/23 15:54 propranolol Allergy Hives Verified 08/06/23 15:54 - Past Medical History Past Medical History: Yes Neurological History: Migraines ENT History: No Pertinent History Cardiac History: No Pertinent History Respiratory History: No Pertinent History Endocrine Medical History: No Pertinent History Musculoskelatal History: No Pertinent History GI Medical History: No Pertinent History History: No Pertinent History, Other Pyscho-Social History: No Pertinent History Reproductive Disorders: No Pertinent History Comment: irreg heart beat, tachycardia, 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) - Female History Hx Last Menstrual Period: May 03, 2023 Are you now?: No - Past Surgical History Past Surgical History: Yes Cardiac History: No Pertinent History Respiratory Surgery: No Pertinent History GI Surgical History: No Pertinent History Genitourinary Surgical Hx: No Pertinent History Musculskeletal Surgical Hx: No Pertinent History Female Surgical History: Dilation & Curettage - Social History Smoking Status: Former smoker How long have you smoked: 2 Exposure to second hand smoke: Yes Alcohol: Rarely Drug Use: none - Physical Exam Vital Signs: Vital Signs - 24 hr Temp Pulse Resp BP BP Pulse Ox 08/07/23 06:56 97.2 F 68 15 86/52 98 08/07/23 04:00 97.5 F 65 18 96/54 98 08/07/23 00:00 97.5 F 85 18 122/63 100 08/06/23 22:27 100 08/06/23 22:14 97 08/06/23 21:00 100 08/06/23 20:17 97.3 F 95 H 16 121/66 100 08/06/23 16:00 119 H 122/80 97 08/06/23 15:56 100 F 124 H 18 129/77 99 General Appearance: no apparent distress Neurologic Exam: alert Cardiovascular Exam: regular rate/rhythm Pelvic Exam: not done, deferred Results - Labs Lab/Micro Results: Lab Results-Last 24 Hours 08/06/23 08/06/23 08/06/23 Range/Units 16:10 16:18 16:25 WBC (4.0-10.5) x10^3/uL RBC (4.1-5.4) x10^6/uL Hgb (12.0-16.0) g/dL Hct (35-47) % MCV (78-100) fL MCH (26-32) pg MCHC (32-36) g/dL RDW (11.5-14.0) % Plt Count (150-450) x10^3/uL MPV (7.5-11.0) fL Gran % (36.0-66.0) % Immature Gran % (Auto) (0.00-0.4) % Nucleat RBC Rel Count (0.00-0.1) % Eos # (Auto) (0-0.5) x10^3/uL Immature Gran # (Auto) (0.00-0.03) x10^3u/L Absolute Lymphs (auto) (1.0-4.6) x10^3/uL Absolute Monos (auto) (0.0-1.3) x10^3/uL Absolute Nucleated RBC (0.00-0.01) x10^3u/L Lymphocytes % (24.0-44.0) % Monocytes % (0.0-12.0) % Eosinophils % (0.00-5.0) % Basophils % (0.0-0.4) % Absolute Granulocytes (1.4-6.9) x10^3/uL Basophils # (0-0.4) x10^3/uL Sodium (137-145) mmol/L Potassium (3.5-5.1) mmol/L Chloride (98-107) mmol/L Carbon Dioxide (22-30) mmol/L Anion Gap (5-15) MEQ/L BUN (7-17) mg/dL Creatinine (0.52-1.04) mg/dL Estimated GFR ML/MIN Glucose (74-106) mg/dL Lactic Acid 0.7 (0.4-2.0) Calcium (8.4-10.2) mg/dL Total Bilirubin (0.2-1.3) mg/dL AST (14-36) U/L ALT (0-35) U/L Alkaline Phosphatase (38-126) U/L Serum Total Protein (6.3-8.2) g/dL Albumin (3.5-5.0) g/dL Procalcitonin (0.030-0.080) ng/mL Urine Color Yellow (Yellow) Urine Appearance Clear (Clear) Urine pH 7.0 (4.6-8.0) Ur Specific [place] 1.015 (1.005-1.030) Urine Protein Negative (Negative) Urine Glucose (UA) Negative (Negative) mg/dL Urine Ketones Negative (Negative) Urine Blood Small A (Negative) Urine Nitrite Negative (Negative) Urine Bilirubin Negative (Negative) Urine Urobilinogen 0.2 (0.2) mg/dL Ur Leukocyte Esterase Negative (Negative) U Hyaline Cast (Auto) NONE SEEN (0-2) /LPF Urine Microscopic RBC 6-10 A (0-5) /HPF Urine Microscopic WBC 0-2 (0-5) /HPF Ur Epithelial Cells None Seen (None Seen) /HPF Urine Bacteria None Seen (None Seen) /HPF Urine Culture Reflexed NO (NO) Influenza Type A Ag NEGATIVE (NEGATIVE) Influenza Type B Ag NEGATIVE (NEGATIVE) RSV (PCR) NEGATIVE (NEGATIVE) SARS-CoV-2 (PCR) NEGATIVE (NEGATIVE) ABO Group Rh Factor Antibody Screen (NEGATIVE) Crossmatch (COMPATIBLE) 08/06/23 08/06/23 08/06/23 Range/Units 16:30 16:30 16:30 WBC 7.7 (4.0-10.5) x10^3/uL RBC 2.39 L (4.1-5.4) x10^6/uL Hgb 7.1 L (12.0-16.0) g/dL Hct 22.7 L (35-47) % MCV 95.0 (78-100) fL MCH 29.7 (26-32) pg MCHC 31.3 L (32-36) g/dL RDW 13.3 (11.5-14.0) % Plt Count 243 (150-450) x10^3/uL MPV 10.1 (7.5-11.0) fL Gran % 74.7 H (36.0-66.0) % Immature Gran % (Auto) 0.4 (0.00-0.4) % Nucleat RBC Rel Count 0.0 (0.00-0.1) % Eos # (Auto) 0.06 (0-0.5) x10^3/uL Immature Gran # (Auto) 0.03 (0.00-0.03) x10^3u/L Absolute Lymphs (auto) 1.40 (1.0-4.6) x10^3/uL Absolute Monos (auto) 0.44 (0.0-1.3) x10^3/uL Absolute Nucleated RBC 0.00 (0.00-0.01) x10^3u/L Lymphocytes % 18.1 L (24.0-44.0) % Monocytes % 5.7 (0.0-12.0) % Eosinophils % 0.8 (0.00-5.0) % Basophils % 0.3 (0.0-0.4) % Absolute Granulocytes 5.77 (1.4-6.9) x10^3/uL Basophils # 0.02 (0-0.4) x10^3/uL Sodium 137 (137-145) mmol/L Potassium 3.9 (3.5-5.1) mmol/L Chloride 103 (98-107) mmol/L Carbon Dioxide 25 (22-30) mmol/L Anion Gap 13.3 (5-15) MEQ/L BUN 8 (7-17) mg/dL Creatinine 0.45 L (0.52-1.04) mg/dL Estimated GFR 138.6 ML/MIN Glucose 95 (74-106) mg/dL Lactic Acid (0.4-2.0) Calcium 8.9 (8.4-10.2) mg/dL Total Bilirubin 0.10 L (0.2-1.3) mg/dL AST 33 (14-36) U/L ALT 33 (0-35) U/L Alkaline Phosphatase 74 (38-126) U/L Serum Total Protein 7.1 (6.3-8.2) g/dL Albumin 4.1 (3.5-5.0) g/dL Procalcitonin < 0.030 L (0.030-0.080) ng/mL Urine Color (Yellow) Urine Appearance (Clear) Urine pH (4.6-8.0) Ur Specific [place] (1.005-1.030) Urine Protein (Negative) Urine Glucose (UA) (Negative) mg/dL Urine Ketones (Negative) Urine Blood (Negative) Urine Nitrite (Negative) Urine Bilirubin (Negative) Urine Urobilinogen (0.2) mg/dL Ur Leukocyte Esterase (Negative) U Hyaline Cast (Auto) (0-2) /LPF Urine Microscopic RBC (0-5) /HPF Urine Microscopic WBC (0-5) /HPF Ur Epithelial Cells (None Seen) /HPF Urine Bacteria (None Seen) /HPF Urine Culture Reflexed (NO) Influenza Type A Ag (NEGATIVE) Influenza Type B Ag (NEGATIVE) RSV (PCR) (NEGATIVE) SARS-CoV-2 (PCR) (NEGATIVE) ABO Group Rh Factor Antibody Screen (NEGATIVE) Crossmatch (COMPATIBLE) 08/06/23 08/06/23 08/06/23 Range/Units 18:36 18:36 18:36 WBC (4.0-10.5) x10^3/uL RBC (4.1-5.4) x10^6/uL Hgb (12.0-16.0) g/dL Hct (35-47) % MCV (78-100) fL MCH (26-32) pg MCHC (32-36) g/dL RDW (11.5-14.0) % Plt Count (150-450) x10^3/uL MPV (7.5-11.0) fL Gran % (36.0-66.0) % Immature Gran % (Auto) (0.00-0.4) % Nucleat RBC Rel Count (0.00-0.1) % Eos # (Auto) (0-0.5) x10^3/uL Immature Gran # (Auto) (0.00-0.03) x10^3u/L Absolute Lymphs (auto) (1.0-4.6) x10^3/uL Absolute Monos (auto) (0.0-1.3) x10^3/uL Absolute Nucleated RBC (0.00-0.01) x10^3u/L Lymphocytes % (24.0-44.0) % Monocytes % (0.0-12.0) % Eosinophils % (0.00-5.0) % Basophils % (0.0-0.4) % Absolute Granulocytes (1.4-6.9) x10^3/uL Basophils # (0-0.4) x10^3/uL Sodium (137-145) mmol/L Potassium (3.5-5.1) mmol/L Chloride (98-107) mmol/L Carbon Dioxide (22-30) mmol/L Anion Gap (5-15) MEQ/L BUN (7-17) mg/dL Creatinine (0.52-1.04) mg/dL Estimated GFR ML/MIN Glucose (74-106) mg/dL Lactic Acid (0.4-2.0) Calcium (8.4-10.2) mg/dL Total Bilirubin (0.2-1.3) mg/dL AST (14-36) U/L ALT (0-35) U/L Alkaline Phosphatase (38-126) U/L Serum Total Protein (6.3-8.2) g/dL Albumin (3.5-5.0) g/dL Procalcitonin (0.030-0.080) ng/mL Urine Color (Yellow) Urine Appearance (Clear) Urine pH (4.6-8.0) Ur Specific [place] (1.005-1.030) Urine Protein (Negative) Urine Glucose (UA) (Negative) mg/dL Urine Ketones (Negative) Urine Blood (Negative) Urine Nitrite (Negative) Urine Bilirubin (Negative) Urine Urobilinogen (0.2) mg/dL Ur Leukocyte Esterase (Negative) U Hyaline Cast (Auto) (0-2) /LPF Urine Microscopic RBC (0-5) /HPF Urine Microscopic WBC (0-5) /HPF Ur Epithelial Cells (None Seen) /HPF Urine Bacteria (None Seen) /HPF Urine Culture Reflexed (NO) Influenza Type A Ag (NEGATIVE) Influenza Type B Ag (NEGATIVE) RSV (PCR) (NEGATIVE) SARS-CoV-2 (PCR) (NEGATIVE) ABO Group O Rh Factor POSITIVE Antibody Screen NEGATIVE (NEGATIVE) Crossmatch COMPATIBLE COMPATIBLE (COMPATIBLE) 08/07/23 08/07/23 Range/Units 04:44 04:44 WBC 6.3 (4.0-10.5) x10^3/uL RBC 2.79 L (4.1-5.4) x10^6/uL Hgb 8.3 L (12.0-16.0) g/dL Hct 26.4 L (35-47) % MCV 94.6 (78-100) fL MCH 29.7 (26-32) pg MCHC 31.4 L (32-36) g/dL RDW 13.9 (11.5-14.0) % Plt Count 225 (150-450) x10^3/uL MPV 10.0 (7.5-11.0) fL Gran % (36.0-66.0) % Immature Gran % (Auto) (0.00-0.4) % Nucleat RBC Rel Count (0.00-0.1) % Eos # (Auto) (0-0.5) x10^3/uL Immature Gran # (Auto) (0.00-0.03) x10^3u/L Absolute Lymphs (auto) (1.0-4.6) x10^3/uL Absolute Monos (auto) (0.0-1.3) x10^3/uL Absolute Nucleated RBC (0.00-0.01) x10^3u/L Lymphocytes % (24.0-44.0) % Monocytes % (0.0-12.0) % Eosinophils % (0.00-5.0) % Basophils % (0.0-0.4) % Absolute Granulocytes (1.4-6.9) x10^3/uL Basophils # (0-0.4) x10^3/uL Sodium 137 (137-145) mmol/L Potassium 3.6 (3.5-5.1) mmol/L Chloride 105 (98-107) mmol/L Carbon Dioxide 26 (22-30) mmol/L Anion Gap 9.3 (5-15) MEQ/L BUN 9 (7-17) mg/dL Creatinine 0.51 L (0.52-1.04) mg/dL Estimated GFR 134.4 ML/MIN Glucose 97 (74-106) mg/dL Lactic Acid (0.4-2.0) Calcium 8.2 L (8.4-10.2) mg/dL Total Bilirubin 0.60 (0.2-1.3) mg/dL AST 32 (14-36) U/L ALT 29 (0-35) U/L Alkaline Phosphatase 64 (38-126) U/L Serum Total Protein 6.0 L (6.3-8.2) g/dL Albumin 3.4 L (3.5-5.0) g/dL Procalcitonin (0.030-0.080) ng/mL Urine Color (Yellow) Urine Appearance (Clear) Urine pH (4.6-8.0) Ur Specific [place] (1.005-1.030) Urine Protein (Negative) Urine Glucose (UA) (Negative) mg/dL Urine Ketones (Negative) Urine Blood (Negative) Urine Nitrite (Negative) Urine Bilirubin (Negative) Urine Urobilinogen (0.2) mg/dL Ur Leukocyte Esterase (Negative) U Hyaline Cast (Auto) (0-2) /LPF Urine Microscopic RBC (0-5) /HPF Urine Microscopic WBC (0-5) /HPF Ur Epithelial Cells (None Seen) /HPF Urine Bacteria (None Seen) /HPF Urine Culture Reflexed (NO) Influenza Type A Ag (NEGATIVE) Influenza Type B Ag (NEGATIVE) RSV (PCR) (NEGATIVE) SARS-CoV-2 (PCR) (NEGATIVE) ABO Group Rh Factor Antibody Screen (NEGATIVE) Crossmatch (COMPATIBLE) - Radiology Impressions Radiology Exams & Impressions: Radiology Procedures Category Date Time Status CHEST 1 VIEW (PORTABLE) Stat Exams 08/06/23 16:09 Completed PELVIC [US] Routine Exams 08/07/23 02:10 Ordered Assessment/Plan (1) Postoperative anemia Current Visit: Yes Status: Acute Code(s): D64.9 - ANEMIA, UNSPECIFIED
--- NOTE | 2023-08-07 07:53 | PCM.DS ---
Discharge Summary Date of Admission: 08/06/23 20:10 Admitting Physician: MYRANDA FISCHER MD Primary Care Provider: JESI CARMONA JOSE Allergies Allergies poison tressa extract Allergy (Verified 08/06/23 15:54) Hives propranolol Allergy (Verified 08/06/23 15:54) [facility] Summary - Hospital Course Hospital Course: pt admitted on aug 06 for anemia with tachycardia and underwent suction d&c on aug 02 for missed . during postop period had done well and hgb done prior to her previous discharge was 8. pt was noted having hgb at 7 when she presented to er yesterday however states only having had minimal vaginal bleeding. pt had been iron supplementation at home. pt presented to er for cough. currently feeling much better after having received 2 units of prcb and hgb now at 8.3. pt scheduled to have pelvic sonogram this morning and was advised to fu in office as scheduled on aug 19. pt understands to continue taking her iron supplementation tid at this time. all questions answered to her satisfaction and now stable for discharge. - Vitals & Intake/Output Vital Signs: Vital Signs Temperature 97.2 F 08/07/23 06:56 Pulse Rate 68 08/07/23 06:56 Respiratory Rate 15 08/07/23 06:56 Blood Pressure 86/52 08/07/23 06:56 O2 Sat by Pulse Oximetry 98 08/07/23 06:56 Intake & Output: Intake & Output 08/04/23 08/05/23 08/06/23 08/07/23 11:59 11:59 11:59 11:59 Intake Total 780 Balance 780 Weight 97.6 kg - Lab Result Diagrams: 08/07/23 04:44 08/07/23 04:44 Lab Results-Last 24 Hrs: Lab Results-Last 24 Hours 08/06/23 08/06/23 08/06/23 Range/Units 16:10 16:18 16:25 WBC (4.0-10.5) x10^3/uL RBC (4.1-5.4) x10^6/uL Hgb (12.0-16.0) g/dL Hct (35-47) % MCV (78-100) fL MCH (26-32) pg MCHC (32-36) g/dL RDW (11.5-14.0) % Plt Count (150-450) x10^3/uL MPV (7.5-11.0) fL Gran % (36.0-66.0) % Immature Gran % (Auto) (0.00-0.4) % Nucleat RBC Rel Count (0.00-0.1) % Eos # (Auto) (0-0.5) x10^3/uL Immature Gran # (Auto) (0.00-0.03) x10^3u/L Absolute Lymphs (auto) (1.0-4.6) x10^3/uL Absolute Monos (auto) (0.0-1.3) x10^3/uL Absolute Nucleated RBC (0.00-0.01) x10^3u/L Lymphocytes % (24.0-44.0) % Monocytes % (0.0-12.0) % Eosinophils % (0.00-5.0) % Basophils % (0.0-0.4) % Absolute Granulocytes (1.4-6.9) x10^3/uL Basophils # (0-0.4) x10^3/uL Sodium (137-145) mmol/L Potassium (3.5-5.1) mmol/L Chloride (98-107) mmol/L Carbon Dioxide (22-30) mmol/L Anion Gap (5-15) MEQ/L BUN (7-17) mg/dL Creatinine (0.52-1.04) mg/dL Estimated GFR ML/MIN Glucose (74-106) mg/dL Lactic Acid 0.7 (0.4-2.0) Calcium (8.4-10.2) mg/dL Total Bilirubin (0.2-1.3) mg/dL AST (14-36) U/L ALT (0-35) U/L Alkaline Phosphatase (38-126) U/L Serum Total Protein (6.3-8.2) g/dL Albumin (3.5-5.0) g/dL Procalcitonin (0.030-0.080) ng/mL Urine Color Yellow (Yellow) Urine Appearance Clear (Clear) Urine pH 7.0 (4.6-8.0) Ur Specific [place] 1.015 (1.005-1.030) Urine Protein Negative (Negative) Urine Glucose (UA) Negative (Negative) mg/dL Urine Ketones Negative (Negative) Urine Blood Small A (Negative) Urine Nitrite Negative (Negative) Urine Bilirubin Negative (Negative) Urine Urobilinogen 0.2 (0.2) mg/dL Ur Leukocyte Esterase Negative (Negative) U Hyaline Cast (Auto) NONE SEEN (0-2) /LPF Urine Microscopic RBC 6-10 A (0-5) /HPF Urine Microscopic WBC 0-2 (0-5) /HPF Ur Epithelial Cells None Seen (None Seen) /HPF Urine Bacteria None Seen (None Seen) /HPF Urine Culture Reflexed NO (NO) Influenza Type A Ag NEGATIVE (NEGATIVE) Influenza Type B Ag NEGATIVE (NEGATIVE) RSV (PCR) NEGATIVE (NEGATIVE) SARS-CoV-2 (PCR) NEGATIVE (NEGATIVE) ABO Group Rh Factor Antibody Screen (NEGATIVE) Crossmatch (COMPATIBLE) 08/06/23 08/06/23 08/06/23 Range/Units 16:30 16:30 16:30 WBC 7.7 (4.0-10.5) x10^3/uL RBC 2.39 L (4.1-5.4) x10^6/uL Hgb 7.1 L (12.0-16.0) g/dL Hct 22.7 L (35-47) % MCV 95.0 (78-100) fL MCH 29.7 (26-32) pg MCHC 31.3 L (32-36) g/dL RDW 13.3 (11.5-14.0) % Plt Count 243 (150-450) x10^3/uL MPV 10.1 (7.5-11.0) fL Gran % 74.7 H (36.0-66.0) % Immature Gran % (Auto) 0.4 (0.00-0.4) % Nucleat RBC Rel Count 0.0 (0.00-0.1) % Eos # (Auto) 0.06 (0-0.5) x10^3/uL Immature Gran # (Auto) 0.03 (0.00-0.03) x10^3u/L Absolute Lymphs (auto) 1.40 (1.0-4.6) x10^3/uL Absolute Monos (auto) 0.44 (0.0-1.3) x10^3/uL Absolute Nucleated RBC 0.00 (0.00-0.01) x10^3u/L Lymphocytes % 18.1 L (24.0-44.0) % Monocytes % 5.7 (0.0-12.0) % Eosinophils % 0.8 (0.00-5.0) % Basophils % 0.3 (0.0-0.4) % Absolute Granulocytes 5.77 (1.4-6.9) x10^3/uL Basophils # 0.02 (0-0.4) x10^3/uL Sodium 137 (137-145) mmol/L Potassium 3.9 (3.5-5.1) mmol/L Chloride 103 (98-107) mmol/L Carbon Dioxide 25 (22-30) mmol/L Anion Gap 13.3 (5-15) MEQ/L BUN 8 (7-17) mg/dL Creatinine 0.45 L (0.52-1.04) mg/dL Estimated GFR 138.6 ML/MIN Glucose 95 (74-106) mg/dL Lactic Acid (0.4-2.0) Calcium 8.9 (8.4-10.2) mg/dL Total Bilirubin 0.10 L (0.2-1.3) mg/dL AST 33 (14-36) U/L ALT 33 (0-35) U/L Alkaline Phosphatase 74 (38-126) U/L Serum Total Protein 7.1 (6.3-8.2) g/dL Albumin 4.1 (3.5-5.0) g/dL Procalcitonin < 0.030 L (0.030-0.080) ng/mL Urine Color (Yellow) Urine Appearance (Clear) Urine pH (4.6-8.0) Ur Specific [place] (1.005-1.030) Urine Protein (Negative) Urine Glucose (UA) (Negative) mg/dL Urine Ketones (Negative) Urine Blood (Negative) Urine Nitrite (Negative) Urine Bilirubin (Negative) Urine Urobilinogen (0.2) mg/dL Ur Leukocyte Esterase (Negative) U Hyaline Cast (Auto) (0-2) /LPF Urine Microscopic RBC (0-5) /HPF Urine Microscopic WBC (0-5) /HPF Ur Epithelial Cells (None Seen) /HPF Urine Bacteria (None Seen) /HPF Urine Culture Reflexed (NO) Influenza Type A Ag (NEGATIVE) Influenza Type B Ag (NEGATIVE) RSV (PCR) (NEGATIVE) SARS-CoV-2 (PCR) (NEGATIVE) ABO Group Rh Factor Antibody Screen (NEGATIVE) Crossmatch (COMPATIBLE) 08/06/23 08/06/23 08/06/23 Range/Units 18:36 18:36 18:36 WBC (4.0-10.5) x10^3/uL RBC (4.1-5.4) x10^6/uL Hgb (12.0-16.0) g/dL Hct (35-47) % MCV (78-100) fL MCH (26-32) pg MCHC (32-36) g/dL RDW (11.5-14.0) % Plt Count (150-450) x10^3/uL MPV (7.5-11.0) fL Gran % (36.0-66.0) % Immature Gran % (Auto) (0.00-0.4) % Nucleat RBC Rel Count (0.00-0.1) % Eos # (Auto) (0-0.5) x10^3/uL Immature Gran # (Auto) (0.00-0.03) x10^3u/L Absolute Lymphs (auto) (1.0-4.6) x10^3/uL Absolute Monos (auto) (0.0-1.3) x10^3/uL Absolute Nucleated RBC (0.00-0.01) x10^3u/L Lymphocytes % (24.0-44.0) % Monocytes % (0.0-12.0) % Eosinophils % (0.00-5.0) % Basophils % (0.0-0.4) % Absolute Granulocytes (1.4-6.9) x10^3/uL Basophils # (0-0.4) x10^3/uL Sodium (137-145) mmol/L Potassium (3.5-5.1) mmol/L Chloride (98-107) mmol/L Carbon Dioxide (22-30) mmol/L Anion Gap (5-15) MEQ/L BUN (7-17) mg/dL Creatinine (0.52-1.04) mg/dL Estimated GFR ML/MIN Glucose (74-106) mg/dL Lactic Acid (0.4-2.0) Calcium (8.4-10.2) mg/dL Total Bilirubin (0.2-1.3) mg/dL AST (14-36) U/L ALT (0-35) U/L Alkaline Phosphatase (38-126) U/L Serum Total Protein (6.3-8.2) g/dL Albumin (3.5-5.0) g/dL Procalcitonin (0.030-0.080) ng/mL Urine Color (Yellow) Urine Appearance (Clear) Urine pH (4.6-8.0) Ur Specific [place] (1.005-1.030) Urine Protein (Negative) Urine Glucose (UA) (Negative) mg/dL Urine Ketones (Negative) Urine Blood (Negative) Urine Nitrite (Negative) Urine Bilirubin (Negative) Urine Urobilinogen (0.2) mg/dL Ur Leukocyte Esterase (Negative) U Hyaline Cast (Auto) (0-2) /LPF Urine Microscopic RBC (0-5) /HPF Urine Microscopic WBC (0-5) /HPF Ur Epithelial Cells (None Seen) /HPF Urine Bacteria (None Seen) /HPF Urine Culture Reflexed (NO) Influenza Type A Ag (NEGATIVE) Influenza Type B Ag (NEGATIVE) RSV (PCR) (NEGATIVE) SARS-CoV-2 (PCR) (NEGATIVE) ABO Group O Rh Factor POSITIVE Antibody Screen NEGATIVE (NEGATIVE) Crossmatch COMPATIBLE COMPATIBLE (COMPATIBLE) 08/07/23 08/07/23 Range/Units 04:44 04:44 WBC 6.3 (4.0-10.5) x10^3/uL RBC 2.79 L (4.1-5.4) x10^6/uL Hgb 8.3 L (12.0-16.0) g/dL Hct 26.4 L (35-47) % MCV 94.6 (78-100) fL MCH 29.7 (26-32) pg MCHC 31.4 L (32-36) g/dL RDW 13.9 (11.5-14.0) % Plt Count 225 (150-450) x10^3/uL MPV 10.0 (7.5-11.0) fL Gran % (36.0-66.0) % Immature Gran % (Auto) (0.00-0.4) % Nucleat RBC Rel Count (0.00-0.1) % Eos # (Auto) (0-0.5) x10^3/uL Immature Gran # (Auto) (0.00-0.03) x10^3u/L Absolute Lymphs (auto) (1.0-4.6) x10^3/uL Absolute Monos (auto) (0.0-1.3) x10^3/uL Absolute Nucleated RBC (0.00-0.01) x10^3u/L Lymphocytes % (24.0-44.0) % Monocytes % (0.0-12.0) % Eosinophils % (0.00-5.0) % Basophils % (0.0-0.4) % Absolute Granulocytes (1.4-6.9) x10^3/uL Basophils # (0-0.4) x10^3/uL Sodium 137 (137-145) mmol/L Potassium 3.6 (3.5-5.1) mmol/L Chloride 105 (98-107) mmol/L Carbon Dioxide 26 (22-30) mmol/L Anion Gap 9.3 (5-15) MEQ/L BUN 9 (7-17) mg/dL Creatinine 0.51 L (0.52-1.04) mg/dL Estimated GFR 134.4 ML/MIN Glucose 97 (74-106) mg/dL Lactic Acid (0.4-2.0) Calcium 8.2 L (8.4-10.2) mg/dL Total Bilirubin 0.60 (0.2-1.3) mg/dL AST 32 (14-36) U/L ALT 29 (0-35) U/L Alkaline Phosphatase 64 (38-126) U/L Serum Total Protein 6.0 L (6.3-8.2) g/dL Albumin 3.4 L (3.5-5.0) g/dL Procalcitonin (0.030-0.080) ng/mL Urine Color (Yellow) Urine Appearance (Clear) Urine pH (4.6-8.0) Ur Specific [place] (1.005-1.030) Urine Protein (Negative) Urine Glucose (UA) (Negative) mg/dL Urine Ketones (Negative) Urine Blood (Negative) Urine Nitrite (Negative) Urine Bilirubin (Negative) Urine Urobilinogen (0.2) mg/dL Ur Leukocyte Esterase (Negative) U Hyaline Cast (Auto) (0-2) /LPF Urine Microscopic RBC (0-5) /HPF Urine Microscopic WBC (0-5) /HPF Ur Epithelial Cells (None Seen) /HPF Urine Bacteria (None Seen) /HPF Urine Culture Reflexed (NO) Influenza Type A Ag (NEGATIVE) Influenza Type B Ag (NEGATIVE) RSV (PCR) (NEGATIVE) SARS-CoV-2 (PCR) (NEGATIVE) ABO Group Rh Factor Antibody Screen (NEGATIVE) Crossmatch (COMPATIBLE) - Radiology Exams Ordered Rad Exams-Entire Visit: Radiology Procedures Category Date Time Status CHEST 1 VIEW (PORTABLE) Stat Exams 08/06/23 16:09 Completed PELVIC [US] Routine Exams 08/07/23 02:10 Ordered - Procedures and Test Procedures and Tests throughout Hospitalization: Therapy Orders & Screens 08/06/23 20:31 Smoking Cessation Education ONCE Comment: Diagnosis: Acute blood loss anemia Smoking Status: Current every day smoker How long have you smoked: 8 years Have you smoked in the past 12 months: Yes Approximately how many cigarettes per day: vape Do you dip or chew tobacco: No If,Former Smoker,when did you quit: 2 yrs Final Diagnosis/Problem List - Final Discharge Diagnosis/Problem (1) Postoperative anemia Current Visit: Yes Status: Acute Code(s): D64.9 - ANEMIA, UNSPECIFIED (2) Cough Current Visit: Yes Status: Acute Code(s): R05.9 - COUGH, UNSPECIFIED - Discharge Disposition: Home, Self-Care Condition: Stable Prescriptions: No Action Ferrous Sulfate 325 mg [Feosol 325 mg] 1 tab PO TID Tranexamic Acid 2 tab PO TID Follow up with: JESI CARMONA MD [Primary Care Provider] - AMILCAR JEAN DO [ACTIVE STAFF] - 08/19/23
--- NOTE | 2023-08-07 11:01 | XRAY ---
Indication: Bleeding. Status post D&C 5 days ago. Two-dimensional transabdominal pelvic sonogram performed. Comparison: None Uterus anteverted measuring 12.9 x 3.7 x 6.1 cm. No focal solid/cystic uterine mass. Endometrial cavity demonstrates tiny sliver of fundal fluid measuring 0.4 x 0.4 x 1.9 cm. No endometrial cavity mass or retained products of conception. Right ovary measures 3.5 x 2.0 x 2.6 cm and left measures 2.2 x 2.8 x 2.8 cm. Normal perfusion bilaterally. No suspicious adnexal mass or free fluid. Impression: Tiny sliver nonspecific endometrial cavity fluid. Remaining transabdominal pelvic sonogram is negative.
== END 2023-08-07 11:19 | disposition home or self-care (01) ==
LOC: ED 15:32 → MED SURG 20:10
PROVIDERS: ADMIT Obstetrics & Gynecology; ATTEND Obstetrics & Gynecology
DX: D64.9 Anemia, unspecified (principal); R05.9 Cough, unspecified; R00.0 Tachycardia, unspecified; Z87.59 Personal history of other complications of pregnancy, childbirth and the puerperium; Z79.899 Other long term (current) drug therapy; Z20.828 Contact with and (suspected) exposure to other viral communicable diseases
CPT/HCPCS: 0241U; 36000; 36415; 36430; 71045; 76856; 80053; 81001; 83605; 84145; 85025; 85027; 86850; 86900; 86901; 86922; 87040; 96374; 99284; P9016; 93268; J2405; A9270-GY; G0378

== ENCOUNTER 2024-02-17 13:33 | Observation (INO) | payer OTHER ==
[2024-02-17 14:49] VITALS: TEMP 98.6
--- NOTE | 2024-02-17 16:33 | XRAY ---
Indication: Occasional contractions. Evaluate cervical length. Limited transvaginal OB ultrasound performed to evaluate cervical length. Cervix closed measuring 5.3 cm in length. Single intrauterine with heart rate 151 BPM.
[2024-02-17 16:35] VITALS: BP 116/73; PULSE 75; RESP 20; O2SAT 100
== END 2024-02-17 16:25 | disposition home or self-care (01) ==
LOC: OB 13:33
PROVIDERS: ADMIT Obstetrics & Gynecology; ATTEND Obstetrics & Gynecology
DX: Z34.82 Encounter for supervision of other normal pregnancy, second trimester (principal); Z3A.24 24 weeks gestation of pregnancy
CPT/HCPCS: 76815; G0378; G0379

== ENCOUNTER 2024-04-03 14:40 | Observation (INO) | payer MEDICAID ==
[2024-04-03 15:11] LABS: Appearance Clear (Clear); Bacteria None Seen /HPF (None Seen); Bilirubin Negative (Negative); Blood Negative (Negative); Epithelial Cells None Seen /HPF (None Seen); Glucose, Urine Negative (Negative); Hyaline Casts NONE SEEN /LPF (0-2); Ketones Negative (Negative); Leukocyte Esterase Negative (Negative); Nitrite Negative (Negative); Ph 6.5 (4.6-8.0); Protein,Urine Dip Negative (Negative); RBC 0-2 /HPF (0-5); Specific Gravity 1.015 (1.005-1.030); WBC 0-2 /HPF (0-5)
[2024-04-03 15:14] LABS: ADD URINE CULTURE? NO (NO)
[2024-04-03 15:21] LABS: Amphetamine,Urine NEGATIVE (NEGATIVE); Barbiturate,Urine NEGATIVE (NEGATIVE); Cocaine,Urine NEGATIVE (NEGATIVE); Methadone,Urine NEGATIVE (NEGATIVE); Opiate,Urine NEGATIVE (NEGATIVE); PCP,Urine NEGATIVE (NEGATIVE); THC,Urine NEGATIVE (NEGATIVE)
[2024-04-03 16:01] LABS: Absolute Neutrophil Ct (ANC) 8.52 x10^3/uL (1.56-6.13); BASOPHIL % 0.2 % (0.1-1.2); Basophil (Absolute #) 0.02 x10^3/uL (0.01-0.08); Eosinophil % 0.4 % (0.7-5.8); Eosinophil (Absolute #) 0.04 x10^3/uL (0.04-0.36); Hematocrit 34.8 % (34.1-44.9); Hemoglobin 11.7 g/dL (11.2-15.7); IMMATURE GRAN # 0.14 x10^3u/L (0.001-0.031); IMMATURE GRAN % 1.3 % (0.001-0.429); Lymphocyte (Absolute #) 1.23 x10^3/uL (1.18-3.74); Lymphocytes % 11.6 % (19.3-51.7); Mean Cell Volume 92.1 fL (79.4-94.8); Mean Corpuscular Hgb Concent. 33.6 g/dL (32.2-35.5); Mean Platelet Volume 9.8 fL (9.4-12.3); Monocyte (Absolute #) 0.62 x10^3/uL (0.24-0.86); Monocytes % 5.9 % (4.7-12.5); Neutrophil % 80.6 % (34.0-71.1); Platelet Count 233 x10^3/uL (182-369); Red Blood Count 3.78 x10^6/uL (3.93-5.22); Red Cell Distribution Width 13.1 % (11.7-14.4); White Blood Count 10.6 x10^3/uL (3.98-10.04)
[2024-04-03 16:04] VITALS: BP 123/67; PULSE 107; RESP 16; TEMP 97.8; O2SAT 97
== END 2024-04-03 16:40 | disposition home or self-care (01) ==
LOC: OB 14:40
PROVIDERS: ADMIT Obstetrics & Gynecology; ATTEND Family Medicine
DX: Z34.83 Encounter for supervision of other normal pregnancy, third trimester (principal); Z3A.30 30 weeks gestation of pregnancy
CPT/HCPCS: 36415; 80307; 81001; 85025; G0378; G0379

== ENCOUNTER 2024-04-28 19:02 | Observation (INO) | payer MEDICAID ==
[2024-04-28 19:41] VITALS: BP 109/59; PULSE 112; RESP 18; TEMP 98.7; O2SAT 97
[2024-04-28 20:15] LABS: Amphetamine,Urine NEGATIVE (NEGATIVE); Barbiturate,Urine NEGATIVE (NEGATIVE); Benzodiazepine,Urine NEGATIVE (NEGATIVE); Cocaine,Urine NEGATIVE (NEGATIVE); Methadone,Urine NEGATIVE (NEGATIVE); Opiate,Urine NEGATIVE (NEGATIVE); PCP,Urine NEGATIVE (NEGATIVE); THC,Urine NEGATIVE (NEGATIVE)
== END 2024-04-28 20:40 | disposition home or self-care (01) ==
LOC: OB 19:02
PROVIDERS: ADMIT Obstetrics & Gynecology; ATTEND Obstetrics & Gynecology
DX: Z34.83 Encounter for supervision of other normal pregnancy, third trimester (principal); Z3A.34 34 weeks gestation of pregnancy
CPT/HCPCS: 80307; G0378; G0379

== ENCOUNTER 2024-06-01 02:05 | Inpatient (IN) | payer OTHER ==
[2024-06-01] MEDS ORDERED: STADOL 2 MG IV PRN (16:00)
[2024-06-01] MEDS ORDERED: BRETHINE 1 MG/ML SQ PRN (16:00)
[2024-06-01] MEDS ORDERED: XYLOCAINE 1% HCL 20 ML MDV IJ PRN (16:00)
[2024-06-01] MEDS ORDERED: Nubain 10 MG/ML IV PRN (16:00)
[2024-06-01] MEDS ORDERED: Zofran 4 MG/2 ML VIAL IV PRN (16:00)
[2024-06-01 16:54] LABS: BASOPHIL % 0.1 % (0.1-1.2); Basophil (Absolute #) 0.01 x10^3/uL (0.01-0.08); Eosinophil % 2.6 % (0.7-5.8); Eosinophil (Absolute #) 0.21 x10^3/uL (0.04-0.36); Hematocrit 33.8 % (34.1-44.9); Hemoglobin 11.4 g/dL (11.2-15.7); IMMATURE GRAN # 0.06 x10^3u/L (0.001-0.031); IMMATURE GRAN % 0.7 % (0.001-0.429); Lymphocyte (Absolute #) 1.48 x10^3/uL (1.18-3.74); Lymphocytes % 18.2 % (19.3-51.7); Mean Cell Volume 90.1 fL (79.4-94.8); Mean Corpuscular Hemoglobin 30.4 pg (25.6-32.2); Mean Corpuscular Hgb Concent. 33.7 g/dL (32.2-35.5); Mean Platelet Volume 9.8 fL (9.4-12.3); Monocyte (Absolute #) 0.69 x10^3/uL (0.24-0.86); Monocytes % 8.5 % (4.7-12.5); Neutrophil % 69.9 % (34.0-71.1); Platelet Count 227 x10^3/uL (182-369); Red Blood Count 3.75 x10^6/uL (3.93-5.22); Red Cell Distribution Width 13.1 % (11.7-14.4); White Blood Count 8.2 x10^3/uL (3.98-10.04)
[2024-06-01] MEDS: CYTOTEC PO SCH (17:13)
[2024-06-01 17:49] LABS: Amphetamine,Urine NEGATIVE (NEGATIVE); Barbiturate,Urine NEGATIVE (NEGATIVE); Benzodiazepine,Urine NEGATIVE (NEGATIVE); Cocaine,Urine NEGATIVE (NEGATIVE); Methadone,Urine NEGATIVE (NEGATIVE); Opiate,Urine NEGATIVE (NEGATIVE); PCP,Urine NEGATIVE (NEGATIVE); THC,Urine NEGATIVE (NEGATIVE)
[2024-06-01 18:32] LABS: ABO TYPING O; Antibody Screen NEGATIVE (NEGATIVE); RH TYPING POSITIVE
[2024-06-01] MEDS ORDERED: Ephedrine Sulfate 50 MG/ML IV PRN (20:00)
[2024-06-02] MEDS ORDERED: PITOCIN 30 UNITS/ LR 500 ML 30 UNITS/500 ML PLAST..BAG IV SCH ×2 (05:00)
[2024-06-02] MEDS: Lactated Ringers 1,000 ML IV SCH (07:30)
[2024-06-02] MEDS: PITOCIN 30 UNITS/ LR 500 ML 30 UNITS/500 ML PLAST..BAG IV SCH ×2 (07:30→23:53)
[2024-06-02] MEDS: Lactated Ringers 1,000 ML IV ONE (09:33)
[2024-06-02] MEDS: FENTANYL 2 MCG-BUPIV 0.125%-NS 250 ML Epidur 250 ML EPIDURAL SCH (09:38)
[2024-06-02 14:24] LABS: Appearance Clear (Clear); Bacteria None Seen /HPF (None Seen); Bilirubin Negative (Negative); Blood Negative (Negative); Epithelial Cells None Seen /HPF (None Seen); Glucose, Urine Negative (Negative); Hyaline Casts NONE SEEN /LPF (0-2); Ketones Negative (Negative); Leukocyte Esterase Negative (Negative); Nitrite Negative (Negative); Ph 6.5 (4.6-8.0); Protein,Urine Dip Negative (Negative); RBC 0-2 /HPF (0-5); Urobilinogen 0.2 mg/dL (0.2); WBC 0-2 /HPF (0-5)
[2024-06-02] MEDS: LANSINOH 40 GM TOP PRN (17:35)
[2024-06-02] MEDS: Dermoplast Spray TP PRN (17:36)
[2024-06-02] MEDS: TUCKS TP PRN (17:37)
[2024-06-02] MEDS: Docusate Sodium 100 MG PO SCH (21:11)
[2024-06-02 21:19] VITALS: RESP 18
[2024-06-02] MEDS: MOTRIN 400 MG PO PRN (23:19)
[2024-06-03] MEDS: TYLENOL EXTRA STRENGTH 500 MG PO PRN (04:34)
[2024-06-03 04:36] LABS: BASOPHIL % 0.3 % (0.1-1.2); Basophil (Absolute #) 0.03 x10^3/uL (0.01-0.08); Eosinophil % 1.6 % (0.7-5.8); Eosinophil (Absolute #) 0.17 x10^3/uL (0.04-0.36); Hematocrit 32.6 % (34.1-44.9); Hemoglobin 10.5 g/dL (11.2-15.7); IMMATURE GRAN # 0.05 x10^3u/L (0.001-0.031); IMMATURE GRAN % 0.5 % (0.001-0.429); Lymphocyte (Absolute #) 2.13 x10^3/uL (1.18-3.74); Lymphocytes % 20.3 % (19.3-51.7); Mean Cell Volume 90.3 fL (79.4-94.8); Mean Corpuscular Hemoglobin 29.1 pg (25.6-32.2); Mean Corpuscular Hgb Concent. 32.2 g/dL (32.2-35.5); Mean Platelet Volume 9.6 fL (9.4-12.3); Monocyte (Absolute #) 0.72 x10^3/uL (0.24-0.86); Monocytes % 6.9 % (4.7-12.5); Neutrophil % 70.4 % (34.0-71.1); Platelet Count 189 x10^3/uL (182-369); Red Blood Count 3.61 x10^6/uL (3.93-5.22); White Blood Count 10.5 x10^3/uL (3.98-10.04)
--- NOTE | 2024-06-03 08:39 | PCM.DS ---
Discharge Summary Date of Admission: 06/02/24 08:56 Admitting Physician: JESI CARMONA Consults: Consults on Case 06/02/24 16:53 Navigation ONCE Primary Care Provider: JESI CARMONA Allergies Allergies poison tressa extract Allergy (Verified 06/01/24 19:42) Hives propranolol Allergy (Verified 06/01/24 19:42) [facility] Summary - Hospital Course Hospital Course: patient had uncomplicated vaginal delivery on 06/02, elective induction at 39wks. bottle feeding infant, no repair at delivery. doing great , mild lochia, minimal pain - Vitals & Intake/Output Vital Signs: Vital Signs Temperature 98.3 F 06/03/24 07:51 Pulse Rate 81 06/03/24 07:51 Respiratory Rate 18 06/03/24 07:51 Blood Pressure 111/60 06/03/24 07:51 O2 Sat by Pulse Oximetry 98 06/03/24 06:00 Intake & Output: Intake & Output 05/31/24 06/01/24 06/02/24 06/03/24 11:59 11:59 11:59 11:59 Intake Total 1000 Output Total 400 Balance 1000 -400 Weight 113.398 kg - Lab Result Diagrams: 06/03/24 04:30 Lab Results-Last 24 Hrs: Lab Results-Last 24 Hours 06/02/24 06/03/24 Range/Units 12:00 04:30 WBC 10.5 H (3.98-10.04) x10^3/uL RBC 3.61 L (3.93-5.22) x10^6/uL Hgb 10.5 L (11.2-15.7) g/dL Hct 32.6 L (34.1-44.9) % MCV 90.3 (79.4-94.8) fL MCH 29.1 (25.6-32.2) pg MCHC 32.2 (32.2-35.5) g/dL RDW 13.0 (11.7-14.4) % Plt Count 189 (182-369) x10^3/uL MPV 9.6 (9.4-12.3) fL Gran % 70.4 (34.0-71.1) % Immature Gran % (Auto) 0.5 H (0.001-0.429) % Nucleat RBC Rel Count 0.0 (0.00-0.2) % Eos # (Auto) 0.17 (0.04-0.36) x10^3/uL Immature Gran # (Auto) 0.05 H (0.001-0.031) x10^3u/L Absolute Lymphs (auto) 2.13 (1.18-3.74) x10^3/uL Absolute Monos (auto) 0.72 (0.24-0.86) x10^3/uL Absolute Nucleated RBC 0.00 (0.00-0.012) x10^3u/L Lymphocytes % 20.3 (19.3-51.7) % Monocytes % 6.9 (4.7-12.5) % Eosinophils % 1.6 (0.7-5.8) % Basophils % 0.3 (0.1-1.2) % Absolute Granulocytes 7.40 H (1.56-6.13) x10^3/uL Basophils # 0.03 (0.01-0.08) x10^3/uL Urine Color Yellow (Yellow) Urine Appearance Clear (Clear) Urine pH 6.5 (4.6-8.0) Ur Specific [place] 1.020 (1.005-1.030) Urine Protein Negative (Negative) Urine Glucose (UA) Negative (Negative) mg/dL Urine Ketones Negative (Negative) Urine Blood Negative (Negative) Urine Nitrite Negative (Negative) Urine Bilirubin Negative (Negative) Urine Urobilinogen 0.2 (0.2) mg/dL Ur Leukocyte Esterase Negative (Negative) U Hyaline Cast (Auto) NONE SEEN (0-2) /LPF Urine Microscopic RBC 0-2 (0-5) /HPF Urine Microscopic WBC 0-2 (0-5) /HPF Ur Epithelial Cells None Seen (None Seen) /HPF Urine Bacteria None Seen (None Seen) /HPF Urine Culture Reflexed ORDERED SEPARATELY (NO) Micro Results-Entire Visit: Microbiology 06/02/24 12:00 Urine Culture - Preliminary Catherized NO GROWTH TO DATE - Procedures and Test Procedures and Tests throughout Hospitalization: Therapy Orders & Screens 06/02/24 16:04 Standby STAT Comment: Diagnosis: IUP Discharge Exam General Appearance: no apparent distress Neurologic Exam: alert, oriented x 3 Respiratory Exam: normal breath sounds, lungs clear, No respiratory distress Cardiovascular Exam: regular rate/rhythm, normal heart sounds Gastrointestinal/Abdomen Exam: soft, other (fundus firm), No tenderness, No mass Extremity Exam: normal inspection, normal range of motion Skin Exam: normal color, warm, dry Final Diagnosis/Problem List - Final Discharge Diagnosis/Problem (1) Normal vaginal delivery Current Visit: Yes Status: Acute Assessment & Plan: mom requesting early discharge at 24 hours, doing great with no complications Code(s): O80 - ENCOUNTER FOR FULL-TERM UNCOMPLICATED DELIVERY - Discharge Disposition: Home, Self-Care Condition: Stable Prescriptions: Continue Pnv No.95/Ferrous Fum/Folic AC [ Vitamin Tablet] 1 each PO DAILY Follow up with: JESI CARMONA MD [Primary Care Provider] - 6 weeks
[2024-06-03] MEDS ORDERED: THERAGRAN MULTIVITAMIN PO SCH (10:00)
[2024-06-03] MEDS ORDERED: [UNRECOGNIZED DRUG - REMARK] PO SCH (10:00)
[2024-06-03 13:35] LABS: RPR Non Reactive (Non Reactive)
[2024-06-03] MEDS: Adacel Vial IM ONE (16:07)
[2024-06-03] MEDS: FERREX 150 PO SCH (18:02)
[2024-06-03 21:11] VITALS: O2SAT 97
--- NOTE | 2024-06-04 07:12 | PCM.DS ---
Discharge Summary Date of Admission: 06/02/24 08:56 Admitting Physician: JESI CARMONA Consults: Consults on Case 06/02/24 16:53 Navigation ONCE Primary Care Provider: JESI CARMONA Allergies Allergies poison tressa extract Allergy (Verified 06/01/24 19:42) Hives propranolol Allergy (Verified 06/01/24 19:42) [facility] Summary - Hospital Course Hospital Course: had uncomplicated vaginal delivery at 39wks, no repair. bottle feeding, mild lochia, pain is minimal and well controlled - Vitals & Intake/Output Vital Signs: Vital Signs Temperature 98.3 F 06/04/24 03:00 Pulse Rate 77 06/04/24 03:00 Respiratory Rate 18 06/04/24 03:00 Blood Pressure 109/58 06/04/24 03:00 O2 Sat by Pulse Oximetry 97 06/04/24 03:00 Intake & Output: Intake & Output 06/01/24 06/02/24 06/03/24 06/04/24 11:59 11:59 11:59 11:59 Intake Total 1000 1100 Output Total 400 Balance 1000 -400 1100 Weight 113.398 kg - Lab Result Diagrams: 06/03/24 04:30 Lab Results-Last 24 Hrs: Lab Results-Last 24 Hours 06/01/24 Range/Units 16:45 RPR Non Reactive (Non Reactive) Micro Results-Entire Visit: Microbiology 06/02/24 12:00 Urine Culture - Preliminary Catherized NO GROWTH TO DATE - Procedures and Test Procedures and Tests throughout Hospitalization: Therapy Orders & Screens 06/02/24 16:04 Standby STAT Comment: Diagnosis: IUP Discharge Exam General Appearance: no apparent distress Neurologic Exam: alert, oriented x 3 Respiratory Exam: normal breath sounds, lungs clear, No respiratory distress Cardiovascular Exam: regular rate/rhythm, normal heart sounds Gastrointestinal/Abdomen Exam: soft, No tenderness, No mass Extremity Exam: normal inspection, normal range of motion Skin Exam: normal color, warm, dry Final Diagnosis/Problem List - Final Discharge Diagnosis/Problem (1) Normal vaginal delivery Current Visit: Yes Status: Acute Code(s): O80 - ENCOUNTER FOR FULL-TERM UNCO MPLICATED DELIVERY - Discharge Disposition: Home, Self-Care Condition: Stable Prescriptions: Continue Pnv No.95/Ferrous Fum/Folic AC [ Vitamin Tablet] 1 each PO DAILY Follow up with: JESI CARMONA MD [Primary Care Provider] - 6 weeks
[2024-06-04 09:55] VITALS: BP 119/60; PULSE 88; TEMP 97.7
== END 2024-06-04 09:40 | disposition home or self-care (01) | DRG 807 ==
LOC: OB 08:56 → UNDOADMOB 16:19 → MED SURG 16:19 → OB 16:19 → OBSVTOIN 06-02 08:56
PROVIDERS: ADMIT Family Medicine; ATTEND Family Medicine
PROC: 10E0XZZ Delivery of Products of Conception, External Approach (ICD-10-PCS; principal; 2024-06-02)
DX: O80 Encounter for full-term uncomplicated delivery (principal); Z37.0 Single live birth; Z3A.39 39 weeks gestation of pregnancy
CPT/HCPCS: 36415; 59025; 80307; 81001; 81003; 85025; 86592; 86850; 86900; 86901; 87086; 90715; 94799; 96372; 99213; G0378; G0379; J2590; A9270-GY

== ENCOUNTER 2024-09-27 07:19 | Day surgery (SDC) | payer OTHER ==
[2024-09-27] MEDS ORDERED: CEFAZOLIN 2 GM/100 ML NaCl 2 GM/100 ML IVPB IV ONE (07:29)
[2024-09-27] MEDS ORDERED: Lactated Ringers 1,000 ML IV ONE (07:29)
[2024-09-27] MEDS: CEFAZOLIN 2 GM/100 ML NaCl 2 GM/100 ML IVPB IV SCH (07:32)
[2024-09-27] MEDS: Lactated Ringers 1,000 ML IV SCH (07:33)
[2024-09-27 07:34] LABS: HCG URINE TEST NEGATIVE (NEGATIVE)
[2024-09-27 07:45] VITALS: RESP 18
[2024-09-27] MEDS ORDERED: propofoL IV ONE (08:44)
[2024-09-27] MEDS ORDERED: ROCURONIUM BROMIDE IV ONE (08:44)
[2024-09-27] MEDS ORDERED: dexAMETHasone sodium phosphate ONE (08:44)
[2024-09-27] MEDS ORDERED: Zofran 4 MG/2 ML VIAL ONE (08:44)
[2024-09-27] MEDS ORDERED: Sensorcaine 0.25% 10 ML ONE (08:54)
[2024-09-27] MEDS ORDERED: SUBLIMAZE 100 MCG/2 ML ONE ×2 (09:18→09:54)
[2024-09-27] MEDS ORDERED: TORAdol 30 mg Injection ONE (09:27)
[2024-09-27] MEDS ORDERED: BRIDION 200MG/2ML IV ONE (09:27)
[2024-09-27] MEDS ORDERED: Hydromorphone 1 mg/ml Injection ONE (10:09)
[2024-09-27] MEDS: PERCOCET TABLET 5/325MG PO PRN (11:30)
[2024-09-27 12:08] VITALS: BP 133/86; PULSE 76; TEMP 97.5; O2SAT 98
--- NOTE | 2024-09-29 12:32 | OP ---
SURGERY DATE/TIME: 09/27/2024 [id number] PREOPERATIVE DIAGNOSIS: Contraceptive care. POSTOPERATIVE DIAGNOSIS: Contraceptive care. PROCEDURE: Laparoscopic tubal sterilization via Falope ring application. SURGEON: Rolando Garduno DO. HVAC SPECIALIST: Emily Perez. ANESTHESIA: General. ESTIMATED BLOOD LOSS: Minimal. COMPLICATIONS: None. INDICATIONS: The risks, benefits, indications, and alternatives of the procedure were reviewed with the patient prior to the procedure. Patient understood the risks of infection, bleeding, bowel injury, bladder injury, ureteral injury, pelvic infection, thromboembolic disorder, or possible future and ectopic that may be associated with this procedure, where all other forms of control had been discussed with the patient prior to the procedure and desires to have this as a possible means to alleviate her prevention of . Patient understands that this is a permanent procedure, however, there are risks of future . She does understand also that there is a possibility that her tubes may be removed or there could be Falope ring that could be applied to the fallopian tube as well as possible electrocauterization. DESCRIPTION OF PROCEDURE AND FINDINGS: At this point, patient was taken to the operating room and given general sedation, placed in the dorsal lithotomy position, prepped and draped in the usual sterile fashion. A weighted speculum was then placed in the patient's vagina and the anterior lip of the cervix was grasped with a single-tooth tenaculum. Endocervical dilators were advanced through the endocervical canal as a means to dilate the cervix and a uterine manipulator was then inserted into the endocervical region for uterine manipulation. Attention was then turned to the patient's abdomen where a 5 mm skin incision was made in an umbilical fold where a 5 mm trocar and sleeve were advanced under direct visualization where pneumoperitoneum was obtained with 4 L of CO2 gas. An additional incision was made 2 cm above the symphysis pubis where an 8 mm incision was made and 8 mm trocar and sleeve were advanced under direct visualization. From this point, there were no gross abnormalities that were located in the pelvic region and the uterus was elevated. The right fallopian tube was identified and the Falope ring applicator was then placed on the right isthmic region of the fallopian tube where a good knuckle of tube, approximately 2 to 3 cm, was taken and the Falope ring was applied to the right tube without complication with good hemostasis. The same procedure was performed on the left tube. The Falope ring applicator was reloaded and the Falope ring was then displaced onto the left isthmic region of the fallopian tube, where a good knuckle of tube approximately 2 to 3 cm was taken and the Falope ring was displaced onto the tube without complication, hemostasis obtained. From this point, visualization of the abdomen and pelvis appeared to be within normal limits with no gross abnormalities that were identified. From this point, all instruments were removed from the patient's abdomen and the incisions were subsequently closed with 4-0 Monocryl suture with subsequent Dermabond. From this point, the patient was then taken out of the dorsal lithotomy position, was taken out of anesthesia, was then taken to recovery room in stable condition. All instruments and laps were accounted for x2.
== END 2024-09-27 12:15 | disposition home or self-care (01) ==
LOC: SDC 07:19
PROVIDERS: ATTEND Obstetrics & Gynecology
DX: Z30.2 Encounter for sterilization (principal)
CPT/HCPCS: 58615; 81025; J0690; J1100; J1171; J1885; J2405; J2704; J3010; A9270-GY